=== PATIENT | male | born 1955 | race Caucasian/White ===

== ENCOUNTER 2024-11-10 13:06 | Inpatient (IN) | payer OTHER ==
[~2024-11-10] VITALS: Ht 177.8 cm; Wt 96.5 kg
[2024-11-10 13:56] LABS: Hematocrit 49.4 % (41.0-53.0); Hemoglobin 17.3 g/dL (13.5-17.5); Mean Corpuscular Hemoglobin 31.0 pg (28.0-32.0); Mean Corpuscular Volume 88.6 fL (80.0-100.0); Nucleated Red Blood Cells % 0.1 %
[2024-11-10 14:07] LABS: Potassium 4.1 mmol/L (3.5-5.1); Sodium 142 mmol/L (136-145)
[2024-11-10 14:08] LABS: Anion Gap 10 (5-15); Calcium 10.1 mg/dL (8.7-10.4); Carbon Dioxide 24 mmol/L (20-31)
[2024-11-10 14:09] LABS: Chloride 108 mmol/L (98-107)
--- NOTE | 2024-11-10 14:11 | ED.PDOC ---
HPI (NEURO) HPI Comments 68 y/o M, with PMHx of HTN presents to the ED for CC of left-sided weakness. Patient states, that he has been experiencing left sided weakness since, February 2024. Patient reports, being sent by PCP () to have an MRI. Patient denies denies trauma, injury, or fall. Chief Complaint: Left Sided Weakness Time Seen by MD: 13:45 Reviewed Notes: Nurses Notes, Medications, Allergies Information Source: Patient, Spouse Mode of Arrival: Ambulatory Severity: Moderate Headache Severity: None Timing: Months Duration: Since onset Prehospital treatment: None Weakness Location: (L) Arm Onset: At rest Circumstances: Spontaneous Symptoms: None History of: None Modifying factors: Nothing Associated Signs and Symptoms: Weakness Past Medical History PAST MEDICAL HISTORY: HTN Surgical History: Denies all surgeries Family History Family History: Unknown Social History Smoker: Non-Smoker Alcohol: Denies ETOH Use Drugs: Denies Drug Use Lives In: Home Constitutional: denies: chills, diaphoresis, fatigue, fever, malaise, sweats, weakness, others EENTM: denies: blurred vision, double vision, ear bleeding, ear discharge, ear drainage, ear pain, ear ringing, eye pain, eye redness, hearing loss, mouth pain, mouth swelling, nasal discharge, nose bleeding, nose congestion, nose pain, photophobia, tearing, throat pain, throat swelling, voice changes, others Respiratory: denies: cough, hemoptysis, orthopnea, SOB at rest, shortness of breath, SOB with excertion, stridor, wheezing, others Cardiovascular: denies: chest pain, dizzy spells, diaphoresis, Dyspnea on exertion, edema, irregular heart beat, left arm pain, lightheadedness, palpitations, PND, syncope, others Gastrointestinal: denies: abdomen distended, abdominal pain, blood streaked bowels, constipated, diarrhea, dysphagia, difficulty swallowing, hematemesis, melena, nausea, poor appetite, poor fluid intake, rectal bleeding, rectal pain, vomiting, others Genitourinary: denies: burning, dysuria, flank pain, frequency, hematuria, incontinence, penile discharge, penile sore, pain, testicle pain, testicle swelling, urgency, others Neurological: reports: left sided weakness; denies: dizziness, fainting, headache, left sided numbness, numbness, paresthesia, pre-existing deficit, right sided numbness, right sided weakness, seizure, speech problems, tingling, tremors, weakness, others Musculoskeletal: denies: back pain, gout, joint pain, joint swelling, muscle pain, muscle stiffness, neck pain, others Integumetry: denies: bruises, change in color, change in hair/nails, dryness, laceration, lesions, lumps, rash, wounds, others Allergic/Immunocompromised: denies: Difficulty Healing, Frequent Infections, Hives, Itching, others Hematologic/Lymphatic: denies: anemia, blood clots, easy bleeding, easy bruising, swollen glands, others Endocrine: denies: excessive hunger, excessive sweating, excessive thirst, excessive urination, flushing, intolerance to cold, intolerance to heat, un explained weight gain, unexplained weight loss, others Psychiatric: denies: anxiety, bipolar disorder, depression, hopeless, panic disorder, schizophrenia, sleepless, suicidal, others All Other Systems: Reviewed and Negative Physical Exam General Appearance: Moderate Distress HEENT: Normal ENT Inspection, Pharynx Normal, TMs Normal Neck: Full Range of Motion, Non-Tender, Normal, Normal Inspection Respiratory: Chest Non-Tender, Lungs Clear, No Accessory Muscle Use, No Respiratory Distress, Normal Breath Sounds Cardiovascular: No Edema, No JVD, No Murmur, No Gallop, Normal Peripheral Pulses, Regular Rate/Rhythm Breast Exam: Deferred Gastrointestinal: No Organomegaly, Non Tender, No Pulsatile Mass, Normal Bowel Sounds, Soft Genitalia: Deferred Pelvic: Deferred Rectal: Deferred Extremities: No calf tenderness, No pedal edema, Other (Left upper extremity flaccid) Musculoskeletal : Apperance: Normal Neurologic: Alert, Motor Weakness (Left upper extremity) Cerebellar Function: NOT DONE Reflexes: NOT DONE Skin: Dry, Normal Color, Warm Peripheral Pulses: 3+ Radial (R), 3+ Radial (L) Lymphatic: No Adenopathy EKG EKG : Pulse Rate (adult): 64 [place]: Normal Cardiac Rhythm: NSR Block: None Hypertrophy: None ST: Normal Was a procedure done? Was a procedure done?: No Differential Diagnosis (SZ) Seizure: Psychogenic Seizure, Closed Head Injury, CVA/TIA General Weakness: CVA, Myasthenia gravis, TIA Headache: N/A X-Ray, Labs, Meds, VS Vital Signs Date Time Temp Pulse Resp B/P (MAP) Pulse Ox O2 Delivery O2 Flow Rate FiO2 11/10/24 16:36 65 159/93 11/10/24 16:30 65 14 159/93 (115) 94 11/10/24 15:59 70 161/93 11/10/24 15:00 71 14 174/105 (128) 93 11/10/24 14:11 64 11/10/24 14:00 98.1 64 10 161/98 (119) 95 98.1 11/10/24 13:36 64 11/10/24 13:35 Room Air* 0 21 11/10/24 13:32 98.1 71 16 166/105 (125) 94 98.1 Lab Test 11/10/24 15:31 11/10/24 13:45 11/10/24 13:26 Range/Units Urine Color Light-yellow Yellow Urine Clarity Clear Clear Urine pH 6.0 5.0-9.0 Urine Specific [place] 1.020 1.001-1.035 Urine Protein Negative Negative Urine Ketones Negative Negative Urine Blood Trace H Negative /uL Urine Nitrite Negative Negative Urine Bilirubin Negative Negative Urine Urobilinogen Normal Negative mg/dL Urine Leukocyte Esterase Negative Negative /uL Urine RBC 3 0 - 3 /hpf Urine Microscopic WBC 1 0-3 /HPF Urine Squamous Epithelial Cells None seen <5 /hpf Urine Bacteria None seen None Seen /hpf Urine Mucus Few None Seen Urine Glucose Normal Normal mg/dL White Blood Count 7.9 4.4-10.8 10^3/uL Red Blood Count 5.57 4.5-5.90 10^6/uL Hemoglobin 17.3 13.5-17.5 g/dL Hematocrit 49.4 41.0-53.0 % Mean Corpuscular Volume 88.6 80.0-100.0 fL Mean Corpuscular Hemoglobin 31.0 28.0-32.0 pg Mean Corpuscular Hemoglobin Concent 35.0 32.0-36.0 g/dL Red Cell Distribution Width 13.1 11.8-14.3 % Platelet Count 144 140-450 10^3/uL Mean Platelet Volume 8.1 6.9-10.8 fL Neutrophils (%) (Auto) 65.9 37.0-80.0 % Lymphocytes (%) (Auto) 22.5 10.0-50.0 % Monocytes (%) (Auto) 7.9 0.0-12.0 % Eosinophils (%) (Auto) 2.2 0.0-7.0 % Basophils (%) (Auto) 1.5 0.0-2.0 % Neutrophils # (Auto) 5.2 1.6-8.6 10 ^3/uL Lymphocytes # (Auto) 1.8 0.4-5.4 10 ^3/uL Monocytes # (Auto) 0.6 0-1.3 10 ^3/uL Eosinophils # (Auto) 0.2 0-0.8 10 ^3/uL Basophils # (Auto) 0.1 0-0.2 10 ^3/uL Nucleated Red Blood Cells 0.1 % Sodium Level 142 136-145 mmol/L Potassium Level 4.1 3.5-5.1 mmol/L Chloride Level 108 H 98-107 mmol/L Carbon Dioxide Level 24 20-31 mmol/L Anion Gap 10 5-15 Blood Urea Nitrogen 15 9-23 mg/dL Creatinine 1.09 0.700-1.30 mg/dL Glomerular Filtration Rate Calc 74 >90 mL/min BUN/Creatinine Ratio 13.8 10.0-20.0 Serum Glucose 85 74-106 mg/dL Calcium Level 10.1 8.7-10.4 mg/dL Troponin I High Sensitivity 8 </=54 ng/L POC Glucose 90 70-106 mg/dl Current Medications Medications (Trade) Dose Ordered Sig/Cristian Route Start Time Stop Time Status Last Admin Labetalol HCl (Labetalol HCl) 10 mg ONCE ONCE IV 11/10/24 15:30 11/10/24 15:31 DC 11/10/24 15:59 Patient alert. Vitals stable. Has weakness of left upper extremity. Answering all questions. WBC within normal limits. Hemoglobin within normal limits. Kidney function within normal limits. Possibly old injury that is causing his symptom at the present moment. Rule out brachial plexus injury. Possibly will need MRI of the neck. CT myelogram. Blood pressure elevated. Was given labetalol. Explained to the family. Continue monitoring. Patient will need echocardiogram. Ongoing pain. Blood pressure continues to be elevated. [place] approved inpatient admission [id number]. Time of 1ST Reevaluation: 14:15 Reevaluation 1ST: Unchanged Patient Education/Counseling: Diagnosis, Treatment Family Education/Counseling: No Family Present Departure 1 Departure Time of Disposition: 14:31 Impression: Primary Impression: Hypertensive emergency Additional Impression: Muscle atrophy of upper extremity Disposition: ADMITTED INPATIENT Admit to: Med Surg Condition: Guarded Critical Care Note Critical Care Time?: No Stability Stability form required: No Heart Score Heart Score: Heart Score Response (Comments) Value History N/A 0 EKG N/A 0 Age N/A 0 Risk Factors N/A 0 Troponin N/A 0 Total 0 I personally scribed for KAVITHA CHA MD ([email or web address]) on 11/10/24 at 14:11. Electronically submitted by Nadya Xiong ([email or web address]). I personally scribed for KAVITHA CHA MD ([email or web address]) on 11/10/24 at 14:13. Electronically submitted by Nadya Xiong ([employer]). I personally scribed for KAVITHA CHA MD ([email or web address]) on 11/10/24 at 14:38. Electronically submitted by Nadya Xiong ([email or web address]). KAVITHA CHA MD Nov 10, 2024 14:11
[2024-11-10 14:13] LABS: BUN/Creatinine Ratio 13.8 (10.0-20.0); Blood Urea Nitrogen 15 mg/dL (9-23); Glucose 85 mg/dL (74-106)
[2024-11-10 15:42] LABS: Urine Protein, UAD Negative (Negative)
[2024-11-10] MEDS: LABETALOL HCL 20 MG/4 ML VL IV ONE ×2 (15:59→18:24)
[2024-11-10] MEDS ORDERED: HYDROcodone-ACET 5/325MG TAB PO PRN (18:15)
[2024-11-10 19:40] VITALS: PULSE 62; RESP 14; O2SAT 93
[2024-11-10] MEDS ORDERED: NITROGLYCERIN 0.4 MG SL TAB SL PRN (20:45)
[2024-11-10] MEDS ORDERED: MORPHINE SULFATE INJ 2 MG/ml SYRG IV PRN (20:45)
--- NOTE | 2024-11-10 21:04 | DVHHP2 ---
History of Present Illness Reason for Visit: Hypertensive emergency History of Present Illness The patient is a 68-year-old male with past medical history of hypertension who presented to [facility] ED with complaint of left-sided weakness. Patient reports he has been experiencing left-sided weakness since February,, [place] by his PCP Dr. Matthews to have an MRI. Patient was seen and evaluated in the ED, laboratory data shows WBC 7.9, platelets 144, sodium 142, potassium 4.1, BUN 15, creatinine 1.09, GFR 74, glucose 85, troponin 8, calcium 10.1, blood pressure 175/105 trending down to 163/95, heart rate 65, temperature 98.1 F, O2 saturation 95% on room air. Patient was given labetalol 10 mg IV, please see medication orders section in the computer. On my assessment, patient denied chest pain, no headache, no dizziness no diaphoresis, no shortness of breath, no nausea, no vomiting, no fever, no chills. Patient was admitted for further evaluation and medical management. Past Medical History HTN Past Surgical History Denies all surgeries Family History Reviewed, noncontributory to the management of this case. Past Social History The patient lives at home, denies smoking, alcohol or illicit drugs abuse. Review of Systems Constitutional: No: Fever, Chills, Sweats, Weakness, Malaise, Other Eyes: No: Pain, Vision change, Conjunctivae inflammation, Eyelid inflammation, Other, Redness ENT: No: Ear pain, Ear discharge, Nose pain, Nose discharge, Nose congestion, Mouth pain, Mouth swelling, Throat pain, Throat swelling, Other Respiratory: No: Cough, Dry, Shortness of breath, SOB with excertion, Wheezing, Hemoptysis, Pleuritic Pain, Sputum, Wheezing, Other Cardiovascular: No: Chest Pain, Palpitations, Orthopnea, Paroxysmal Noc. Dyspnea, Edema, Lt Headedness, Other Gastrointestinal: No: Nausea, Vomiting, Abdominal Pain, Diarrhea, Constipation, Melena, Hematochezia, Other Genitourinary: No Dysuria, No Frequency, No Incontinence, No Hematuria, No Retention, No Other Musculoskeletal: other (Muscle atrophy of upper extremity); No: neck pain, shoulder pain, arm pain, back pain, hand pain, leg pain, foot pain Skin: No: Rash, Lesions, Jaundice, Bruising, Other Neurological: Weakness (Left-sided); No: Numbness, Incoordination, Change in speech, Confusion, Seizures, Other Allergies: Coded Allergies: NO KNOWN ALLERGIES (Unverified , 11/10/24) Medications Current Medications Medications Dose Ordered Sig/Cristian Route Start Time Stop Time Status Last Admin Dose Admin Losartan Potassium 25 mg DAILY PO 11/11/24 10:00 Hydralazine HCl 10 mg Q6HP PRN IV 11/10/24 18:15 Amlodipine Besylate 5 mg DAILY PO 11/11/24 10:00 Sodium Chloride 10 ml Q8HR IV 11/10/24 22:00 Acetaminophen/ Hydrocodone Bitart 1 tab Q4HP PRN PO 11/10/24 18:15 Acetaminophen 650 mg Q6HP PRN PO 11/10/24 18:15 Exam Vital Signs Vital Signs Date Time Temp Pulse Resp B/P (MAP) Pulse Ox O2 Delivery O2 Flow Rate FiO2 11/10/24 20:36 61 11/10/24 19:06 14 164/98 (120) 96 11/10/24 14:00 98.1 98.1 11/10/24 13:35 Room Air* 0 21 General Appearance: Alert, Oriented X3, Cooperative, No acute distress HEENT: Atraumatic, PERRLA, EOMI, Mucous membr. moist/pink Respiratory: Clear to auscultation, Normal air movement Cardiovascular: Regular rate, Normal S1, Normal S2, No murmurs Abdominal: Normal bowel sounds, Soft, No tenderness, No hepatospenomegaly, No masses Extremities: No clubbing, No cyanosis, No edema, Normal pulses, No tenderness/swelling Skin: No rashes, No breakdown, No significant lesion Neuro: Normal speech, Normal tone, Sensation intact, Cranial nerves 3-12 NL, Reflexes 2+, Other (Left-sided weakness) Psych/Mental Status: Mental status NL, Mood NL Labs/Xrays Labs Test 11/10/24 15:31 11/10/24 13:45 11/10/24 13:26 Range/Units Urine Color Light-yellow Yellow Urine Clarity Clear Clear Urine pH 6.0 5.0-9.0 Urine Specific [place] 1.020 1.001-1.035 Urine Protein Negative Negative Urine Ketones Negative Negative Urine Blood Trace H Negative /uL Urine Nitrite Negative Negative Urine Bilirubin Negative Negative Urine Urobilinogen Normal Negative mg/dL Urine Leukocyte Esterase Negative Negative /uL Urine RBC 3 0 - 3 /hpf Urine Microscopic WBC 1 0-3 /HPF Urine Squamous Epithelial Cells None seen <5 /hpf Urine Bacteria None seen None Seen /hpf Urine Mucus Few None Seen Urine Glucose Normal Normal mg/dL White Blood Count 7.9 4.4-10.8 10^3/uL Red Blood Count 5.57 4.5-5.90 10^6/uL Hemoglobin 17.3 13.5-17.5 g/dL Hematocrit 49.4 41.0-53.0 % Mean Corpuscular Volume 88.6 80.0-100.0 fL Mean Corpuscular Hemoglobin 31.0 28.0-32.0 pg Mean Corpuscular Hemoglobin Concent 35.0 32.0-36.0 g/dL Red Cell Distribution Width 13.1 11.8-14.3 % Platelet Count 144 140-450 10^3/uL Mean Platelet Volume 8.1 6.9-10.8 fL Neutrophils (%) (Auto) 65.9 37.0-80.0 % Lymphocytes (%) (Auto) 22.5 10.0-50.0 % Monocytes (%) (Auto) 7.9 0.0-12.0 % Eosinophils (%) (Auto) 2.2 0.0-7.0 % Basophils (%) (Auto) 1.5 0.0-2.0 % Neutrophils # (Auto) 5.2 1.6-8.6 10 ^3/uL Lymphocytes # (Auto) 1.8 0.4-5.4 10 ^3/uL Monocytes # (Auto) 0.6 0-1.3 10 ^3/uL Eosinophils # (Auto) 0.2 0-0.8 10 ^3/uL Basophils # (Auto) 0.1 0-0.2 10 ^3/uL Nucleated Red Blood Cells 0.1 % Sodium Level 142 136-145 mmol/L Potassium Level 4.1 3.5-5.1 mmol/L Chloride Level 108 H 98-107 mmol/L Carbon Dioxide Level 24 20-31 mmol/L Anion Gap 10 5-15 Blood Urea Nitrogen 15 9-23 mg/dL Creatinine 1.09 0.700-1.30 mg/dL Glomerular Filtration Rate Calc 74 >90 mL/min BUN/Creatinine Ratio 13.8 10.0-20.0 Serum Glucose 85 74-106 mg/dL Calcium Level 10.1 8.7-10.4 mg/dL Troponin I High Sensitivity 8 </=54 ng/L POC Glucose 90 70-106 mg/dl Assessment/Plan Assessment/Plan Hypertensive emergency Left-sided weakness Muscle atrophy of upper extremity Plan 1. Admit to telemetry unit 2. Breathing treatment 3. Pain control management 4. Management of fluids and electrolytes 5. Consultation for hospitalist 6. Diagnostic tests chest x-ray 7. DVT prophylaxis-on SCDs 8. Repeat labs CBC, CMP in a.m. 9. Continue with current medical management 10. Treatment plan discussed with patient and RN. Patient verbalized unde rstanding. Plan discussed with: Patient, Other (RN) My Orders Orders - RONNIE RAMIREZ DNP Procedure Category Date Status Time Losartan Tablet PHA 11/11/24 In Process (Cozaar Tablet) 10:00 Hydralazine Injection PHA 11/10/24 In Process (Apresoline Inject 18:15 Amlodipine Tablet PHA 11/11/24 In Process (Norvasc Tablet) 10:00 Allergies [facility] 11/10/24 In Process 18:05 Code Status CODE 11/10/24 Transmitted 18:05 Sodium Chloride Lock PHA 11/10/24 In Process (Saline Lock Ns) 22:00 Hydrocodone-Acet PHA 11/10/24 In Process 5/325mg Tab ([place] 18:15 Cardiac DIET 11/10/24 Transmitted Diet-2gna,Lofat,Lochol Dinner Condition: Serious CHRISTINA 11/10/24 In Process 18:05 Acetaminophen Tablet PHA 11/10/24 In Process (Tylenol Tablet) 18:15 Admit ADMIT 11/10/24 Verified 20:[address] [facility] 11/10/24 Verified Sublingual (Ntrostat 20:[address] [facility] 11/10/24 Verified Injection 20:45 Stat Ekg For Chest [facility] 11/10/24 Verified Pain 20:41 Notify Of Changes [facility] 11/10/24 Verified From Base 20:41 Office Auditor For [facility] 11/10/24 Verified 24 Hours 20:41 Emergency Dysrhythmia [facility] 11/10/24 Verified Protocol 20:41 Rhythm Strips Once [facility] 11/10/24 Verified Every Shift 20:41 Oxygen By Nasal RT 11/10/24 Verified Cannula 20:41 Problem List: (1) Hypertensive emergency (2) Left-sided weakness (3) Muscle atrophy of upper extremity Date of Service: Nov 10, 2024 Billing Provider: RNONIE RAMIREZ DNP Common Visit Codes: [id number] INP/OBS CARE (HIGH) RONNIE RAMIREZ DNP Nov 10, 2024 21:04
[2024-11-10] MEDS: SODIUM CHLOR 0.9% PF (SALINE LOCK) 10ML VIAL/SYR IV SCH (22:00)
[2024-11-10 22:32] VITALS: BP 156/84; PULSE 62; RESP 17; TEMP 97.4; O2SAT 94
[2024-11-10 22:54] VITALS: O2SAT 99
[2024-11-10] MEDS ORDERED: LOS25T PO (22:55)
[2024-11-10] MEDS ORDERED: IBUP-1455 PO (22:55)
[2024-11-11] VITALS (10 sets, daily range): BP systolic 125–163; BP diastolic 75–105; PULSE 59–79; RESP 16–20; TEMP 97.8–98.4; O2SAT 92–96
--- NOTE | 2024-11-11 09:10 | DVHINCON2 ---
Date of service: Nov 11, [address] Matthews Reason for Consultation ALS History of Present Illness Mr. Howell is a 68 years old left-handed gentleman with a history of hypertension, he came to the [facility] on 11/10/2024 with a chief complaint of left arm weakness, at this time, he is alert and fully oriented, he provided the following history Around 03/2024, he noticed slight left arm weakness, and problem has been progressive, and he has not able to elevated the left arm since 06/2024 Since mid 08/2024, he has noticed neck drooping, he reports intermittent mild neck pain Since mid 08/2024, he has been dragging the left leg but he attributed to mild pain in the left hip He has noticed muscle twitching in the left arm than leg, but denies associated dysphagia, paresthesia, difficulty controlling bowel/bladder He has seen a [facility] neurologist, he went through CT head, MRI shoulder/neck, but he does not remember having NCV/EMG, and he was said to have ALS Urinalysis, 11/10/2024: No UTI CBC, 11/10/2024: Unremarkable BMP 11/10/2024: Unremarkable Past Medical History Hypertension Past Surgical History None Family History: FH: brain cancer G8 MOTHER Family History Ry's disease, brain cancer, no areas Social History He used to smoke marijuana, but has no history of tobacco smoke, drug or alcohol abuse Allergies: Coded Allergies: NO KNOWN ALLERGIES (Unverified , 11/10/24) Home Meds Reported Medications Ibuprofen Micronized (Ibuprofen) 800 Mg Tab, TAB PO 11/10/24 Losartan Potassium (Losartan Potassium) 25 Mg Tab, 1 TAB PO DAILY 11/10/24 Current Medications Current Medications Medications (Trade) Dose Ordered Sig/Cristian Route PRN Reason Start Time Stop Time Status Last Admin Losartan Potassium (Cozaar Tablet) 25 mg DAILY PO 11/11/24 10:00 Hydralazine HCl (Apresoline Injection) 10 mg Q6HP PRN IV SBP>150 11/10/24 18:15 Amlodipine Besylate (Norvasc Tablet) 5 mg DAILY PO 11/11/24 10:00 Sodium Chloride (Saline Lock Ns) 10 ml Q8HR IV 11/10/24 22:00 11/11/24 06:15 Acetaminophen/ Hydrocodone Bitart ([place] 5/325MG Tab) 1 tab Q4HP PRN PO MODERATE PAIN (4-6 PAIN SCALE) 11/10/24 18:15 Acetaminophen (Tylenol Tablet) 650 mg Q6HP PRN PO PAIN SCALE 1-3 OR TEMP>100.4 11/10/24 18:15 Nitroglycerin (Ntrostat Sublingual) 0.4 mg Q5MINP PRN SL FOR CHEST PAIN 11/10/24 20:45 Morphine Sulfate 2 mg Q30M PRN IV FOR CHEST PAIN 11/10/24 20:45 Enoxaparin Sodium (Lovenox) 40 mg DAILY SC 11/11/24 10:00 Review of Systems As above, the other systems are negative Vital Signs Vital Signs Date Time Temp Pulse Resp B/P (MAP) Pulse Ox O2 Delivery O2 Flow Rate FiO2 11/11/24 08:13 18 92 Room Air* 0 21 11/11/24 05:00 97.8 60 142/75 (97) 97.8 Physical Exam GENERAL EXAM: General: the patient is well developed and nourished. No acute distress. HEENT: Normocephalic, neck is supple, no carotid bruits. No mass. RESPIRATORY: Normal respiratory effort with symmetrical lung expansion. Lungs clear to auscultation. CARDIOVASCULAR: Regular rate and rhythm with no murmurs. S1, S2. ABDOMEN: Soft, nontender, normal bowel sound NEUROLOGICAL: MENTAL STATUS: Awake and alert. Oriented to person, place, time and general circumstances. Able to give personal history. SPEECH, LANGUAGE, HIGHER CORTICAL FUNCTION: no aphasia or dysathria. CRANIAL NERVES: #2: Intact visual olmos to confrontation. The optic discs were sharp. #3,4,6: Pupils are equal, round and reactive. EOMs full and conjugate. #5: Facial sensation intact in all three divisions bilaterally. Mandibular strength intact. #7: Facial muscles symmetrical and strength intact. #8: Hearing grossly normal to voice. #9,10: Uvula and soft palate rise in the midline. Swallow and voice are normal. #11: Trapezius and sternomastoid strength intact bilaterally. #12: Tongue midline. No fasciculations or atrophy. SENSATION: Sensation to touch and pinprick is normal. MOTOR: Tone is normal except for diminished in the left upper extremity. Mild atrophy in the left upper extremity. No fasciculations. No abnormal movements or posturing. Muscle strength of the major groups in the er extremities is 5/5 except for 3/5 in the left shoulder, elbow, and 4/5 in the left gripping REFLEXES: Deep tendon reflexes normal and symmetrical. No pathological reflexes. CEREBELLAR/COORDINATION: No ataxia in the right arm GAIT/STATION: deferred. Labs/Diagnostic Data Labs Test 11/10/24 15:31 11/10/24 13:45 11/10/24 13:26 Range/Units Urine Color Light-yellow Yellow Urine Clarity Clear Clear Urine pH 6.0 5.0-9.0 Urine Specific [place] 1.020 1.001-1.035 Urine Protein Negative Negative Urine Ketones Negative Negative Urine Blood Trace H Negative /uL Urine Nitrite Negative Negative Urine Bilirubin Negative Negative Urine Urobilinogen Normal Negative mg/dL Urine Leukocyte Esterase Negative Negative /uL Urine RBC 3 0 - 3 /hpf Urine Microscopic WBC 1 0-3 /HPF Urine Squamous Epithelial Cells None seen <5 /hpf Urine Bacteria None seen None Seen /hpf Urine Mucus Few None Seen Urine Glucose Normal Normal mg/dL White Blood Count 7.9 4.4-10.8 10^3/uL Red Blood Count 5.57 4.5-5.90 10^6/uL Hemoglobin 17.3 13.5-17.5 g/dL Hematocrit 49.4 41.0-53.0 % Mean Corpuscular Volume 88.6 80.0-100.0 fL Mean Corpuscular Hemoglobin 31.0 28.0-32.0 pg Mean Corpuscular Hemoglobin Concent 35.0 32.0-36.0 g/dL Red Cell Distribution Width 13.1 11.8-14.3 % Platelet Count 144 140-450 10^3/uL Mean Platelet Volume 8.1 6.9-10.8 fL Neutrophils (%) (Auto) 65.9 37.0-80.0 % Lymphocytes (%) (Auto) 22.5 10.0-50.0 % Monocytes (%) (Auto) 7.9 0.0-12.0 % Eosinophils (%) (Auto) 2.2 0.0-7.0 % Basophils (%) (Auto) 1.5 0.0-2.0 % Neutrophils # (Auto) 5.2 1.6-8.6 10 ^3/uL Lymphocytes # (Auto) 1.8 0.4-5.4 10 ^3/uL Monocytes # (Auto) 0.6 0-1.3 10 ^3/uL Eosinophils # (Auto) 0.2 0-0.8 10 ^3/uL Basophils # (Auto) 0.1 0-0.2 10 ^3/uL Nucleated Red Blood Cells 0.1 % Sodium Level 142 136-145 mmol/L Potassium Level 4.1 3.5-5.1 mmol/L Chloride Level 108 H 98-107 mmol/L Carbon Dioxide Level 24 20-31 mmol/L Anion Gap 10 5-15 Blood Urea Nitrogen 15 9-23 mg/dL Creatinine 1.09 0.700-1.30 mg/dL Glomerular Filtration Rate Calc 74 >90 mL/min BUN/Creatinine Ratio 13.8 10.0-20.0 Serum Glucose 85 74-106 mg/dL Calcium Level 10.1 8.7-10.4 mg/dL Troponin I High Sensitivity 8 </=54 ng/L POC Glucose 90 70-106 mg/dl Assessment Progressive left upper extremity weakness, neck weakness without sensory symptoms, possibly he has amyotrophic lateral sclerosis/ALS Rule out C-spine radiculopathy/plexopathy Plan/Recommendation Monitoring Supportive treatment Telemetry MRI C-spine CPK Consult Dr. Eva Jeffers or neuromuscular specialist More recommendation per clinical course Prognosis: Poor This medical document was created using an electronic medical record system with [employer] dictation system. Although this document has been carefully reviewed, there may still be some phonetic and typographical errors. These are as are purely typographical due to imperfections of the software programs, and do not reflect any compromise in the patient's medical care. Plan discussed with: Patient, Other KASSANDRA ALVA MD Nov 11, 2024 09:10
--- NOTE | 2024-11-11 09:18 | DVH ---
CHEST RADIOGRAPH Indication: SOB Technique: Frontal and lateral view of the chest was obtained Comparison: None FINDINGS: Lines and Tubes: None Lungs: Clear Pleura: No effusion. No pneumothorax. Cardiomediastinal contours: Unremarkable Bones: Unremarkable IMPRESSION: No evidence of acute disease.
[2024-11-11] MEDS: LOSARTAN POTASSIUM 25 MG TAB PO SCH (09:33)
[2024-11-11] MEDS: ENOXAPARIN SOD 40 MG/0.4 ML SYRINGE SC SCH (09:34)
[2024-11-11] MEDS: ACETAMINOPHEN 325 MG TAB PO PRN (09:44)
[2024-11-11 09:59] LABS: Creatine Kinase IFCC 834.0 U/L (46-171)
--- NOTE | 2024-11-11 10:05 | DVHINCON2 ---
Consultation - Spinal Surgery Date Seen: Nov 11, 2024 Referring Physician Referring Physician Attending Doctor: Nam Vanessa Dnp Reason for Consultation Reason for Visit: Hypertensive emergency History of Present Illness History of Present Illness History of Present Illness The patient is a 68-year-old male with past medical history of hypertension who presented to [facility] ED with complaint of left-sided weakness. Patient reports he has been experiencing left-sided weakness since February,, [place] by his PCP Dr. Matthews to have an MRI. Patient was seen and evaluated in the ED, laboratory data shows WBC 7.9, platelets 144, sodium 142, potassium 4.1, BUN 15, creatinine 1.09, GFR 74, glucose 85, troponin 8, calcium 10.1, blood pressure 175/105 trending down to 163/95, heart rate 65, temperature 98.1 F, O2 saturation 95% on room air. Patient was given labetalol 10 mg IV, please see medication orders section in the computer. On my assessment, patient denied chest pain, no headache, no dizziness no diaphoresis, no shortness of breath, no nausea, no vomiting, no fever, no chills. Patient was admitted for further evaluation and medical management. Past Medical/Surgical History Past Medical/Surgical History Past Medical History HTN Past Surgical History Denies all surgeries Family and Social History Family and Social History Family History Reviewed, noncontributory to the management of this case. Past Social History The patient lives at home, denies smoking, alcohol or illicit drugs abuse. Allergies and medications Allergies: Coded Allergies: NO KNOWN ALLERGIES (Unverified , 11/10/24) Home Meds Reported Medications Ibuprofen Micronized (Ibuprofen) 800 Mg Tab, TAB PO 11/10/24 Losartan Potassium (Losartan Potassium) 25 Mg Tab, 1 TAB PO DAILY 11/10/24 Review of systems Review of Systems: HEENT:Abnormal (Patient is unable to hold head in neutral position), CVS:Normal, RESPIRATORY:Normal, GI:Normal, :Normal, MSK:Abnormal (left arm weakness since March), NEURO:Abnormal (Laft arm weakness initally started in shoulder/biceps and as of 2 months ago his hand has become weak) Examination Vital signs Imaging PROCEDURE: MRI cervical spine without contrast. INDICATION: Spondolosys COMPARISON: None TECHNIQUE: MRI of the cervical spine without intravenous contrast utilizing multiplanar, multisequence technique. FINDINGS: The alignment of the cervical spine vertebral bodies is preserved. Reversal of the cervical lordosis. The vertebral body heights are maintained. The intervertebral disc spaces are maintained in height and signal characteristics. The bone marrow signal is homogenous and unremarkable. The cervical spinal cord is normal in signal characteristics and caliber. Posterior fossa structures are unremarkable. No cerebellar tonsillar herniation. Paraspinal muscles are unremarkable. At the C2-C3 level, there is no evidence of central spinal canal or neuroforaminal stenosis. At the C3-C4 level, there is posterior disc osteophyte complex. There is mild canal stenosis. There is severe right and mild left neural foraminal stenosis. At the C4-C5 level, there is right posterolateral disc protrusion. There is mild canal stenosis. Severe right and moderate left neural foraminal stenosis. At the C5-C6 level, there is posterior disc osteophyte complex. Mild canal stenosis. There is moderate right and severe left neural foraminal stenosis. At the C6-C7 level, there is posterior disc osteophyte complex. There is moderate canal stenosis. There is moderate to severe bilateral neural foraminal stenosis. At the C7-T1 level, there is no evidence of central spinal canal or neuroforaminal stenosis. Other: None. IMPRESSION: 1. Multilevel cervical spondylosis most pronounced at C4-C5 where there is a right posterolateral disc protrusion. There is severe right neural foraminal stenosis at C4-C5 severe right neural foraminal stenosis also noted at C3-C4 and moderate to severe bilateral neural foraminal stenosis at C6-C7. Vital Signs Date Time Temp Pulse Resp B/P (MAP) Pulse Ox O2 Delivery O2 Flow Rate FiO2 11/11/24 09:33 155/87 11/11/24 09:00 97.8 63 16 92 97.8 11/11/24 08:13 Room Air* 0 21 Medications Current Medications Medications (Trade) Dose Ordered Sig/Cristian Route PRN Reason Start Time Stop Time Status Last Admin Losartan Potassium (Cozaar Tablet) 25 mg DAILY PO 11/11/24 10:00 11/11/24 09:33 Hydralazine HCl (Apresoline Injection) 10 mg Q6HP PRN IV SBP>150 11/10/24 18:15 Amlodipine Besylate (Norvasc Tablet) 5 mg DAILY PO 11/11/24 10:00 11/11/24 09:32 Sodium Chloride (Saline Lock Ns) 10 ml Q8HR IV 11/10/24 22:00 11/11/24 06:15 Acetaminophen/ Hydrocodone Bitart ([place]ston 5/325MG Tab) 1 tab Q4HP PRN PO MODERATE PAIN (4-6 PAIN SCALE) 11/10/24 18:15 Acetaminophen (Tylenol Tablet) 650 mg Q6HP PRN PO PAIN SCALE 1-3 OR TEMP>100.4 11/10/24 18:15 11/11/24 09:44 Nitroglycerin (Ntrostat Sublingual) 0.4 mg Q5MINP PRN SL FOR CHEST PAIN 11/10/24 20:45 Morphine Sulfate 2 mg Q30M PRN IV FOR CHEST PAIN 11/10/24 20:45 Enoxaparin Sodium (Lovenox) 40 mg DAILY SC 11/11/24 10:00 11/11/24 09:34 Laboratory Labs Test 11/11/24 09:25 11/10/24 15:31 11/10/24 13:45 11/10/24 13:26 Range/Units Hemoglobin A1c 5.4 <5.7 % A1C Urine Color Light-yellow Yellow Urine Clarity Clear Clear Urine pH 6.0 5.0-9.0 Urine Specific [place] 1.020 1.001-1.035 Urine Protein Negative Negative Urine Ketones Negative Negative Urine Blood Trace H Negative /uL Urine Nitrite Negative Negative Urine Bilirubin Negative Negative Urine Urobilinogen Normal Negative mg/dL Urine Leukocyte Esterase Negative Negative /uL Urine RBC 3 0 - 3 /hpf Urine Microscopic WBC 1 0-3 /HPF Urine Squamous Epithelial Cells None seen <5 /hpf Urine Bacteria None seen None Seen /hpf Urine Mucus Few None Seen Urine Glucose Normal Normal mg/dL White Blood Count 7.9 4.4-10.8 10^3/uL Red Blood Count 5.57 4.5-5.90 10^6/uL Hemoglobin 17.3 13.5-17.5 g/dL Hematocrit 49.4 41.0-53.0 % Mean Corpuscular Volume 88.6 80.0-100.0 fL Mean Corpuscular Hemoglobin 31.0 28.0-32.0 pg Mean Corpuscular Hemoglobin Concent 35.0 32.0-36.0 g/dL Red Cell Distribution Width 13.1 11.8-14.3 % Platelet Count 144 140-450 10^3/uL Mean Platelet Volume 8.1 6.9-10.8 fL Neutrophils (%) (Auto) 65.9 37.0-80.0 % Lymphocytes (%) (Auto) 22.5 10.0-50.0 % Monocytes (%) (Auto) 7.9 0.0-12.0 % Eosinophils (%) (Auto) 2.2 0.0-7.0 % Basophils (%) (Auto) 1.5 0.0-2.0 % Neutrophils # (Auto) 5.2 1.6-8.6 10 ^3/uL Lymphocytes # (Auto) 1.8 0.4-5.4 10 ^3/uL Monocytes # (Auto) 0.6 0-1.3 10 ^3/uL Eosinophils # (Auto) 0.2 0-0.8 10 ^3/uL Basophils # (Auto) 0.1 0-0.2 10 ^3/uL Nucleated Red Blood Cells 0.1 % Sodium Level 142 136-145 mmol/L Potassium Level 4.1 3.5-5.1 mmol/L Chloride Level 108 H 98-107 mmol/L Carbon Dioxide Level 24 20-31 mmol/L Anion Gap 10 5-15 Blood Urea Nitrogen 15 9-23 mg/dL Creatinine 1.09 0.700-1.30 mg/dL Glomerular Filtration Rate Calc 74 >90 mL/min BUN/Creatinine Ratio 13.8 10.0-20.0 Serum Glucose 85 74-106 mg/dL Calcium Level 10.1 8.7-10.4 mg/dL Troponin I High Sensitivity 8 </=54 ng/L POC Glucose 90 70-106 mg/dl Examination: GENERAL:Normal, HEENT:Normal, NECK:Abnormal (unable to hold head in neutral position), LUNGS:Normal, CVS:Normal, ABDOMEN:Normal, MSK:Normal, SKIN:Normal, NEURO:Abnormal (unable to hold head in neutral position, left arm is weak 2/5, left hand is weak 2/5, patient unable to lift arm a deltoid sensation intact bilaterally to all extremities, decrease in muscle bulk to left hand and arm), :Normal Problem List/Assessment/Plan Problems: (1) Cervical stenosis of spinal canal (2) Muscle atrophy of upper extremity (3) Left-sided weakness Assessment and Plan Multilevel cervical spondylosis C4-C5 with right posterolateral disc protrusion. Severe right neural foraminal stenosis at C4-C5, severe right neural foraminal stenosis also noted at C3-C4, severe bilateral neural foraminal stenosis at C6- C7 Patient is agreeable to surgery, cervical anterior diskectomy and fusion, levels to be determined. Patient will need cardio clearance medical clearance prior to surgery Surgery schedule pending OR availability- spine team would like to plan for surgery tomorrow 11/12/2024 Continue supportive care and treatment per admitting team's discretion Physical therapy while in-house Muscle relaxers to reduce cervical muscle spasms Call with questions Adrian Hanks [facility] Orthopaedic Spine Surgery nurse practitioner For Dr Dominique Goldberg Patient was examined, chart reviewed, labs evaluated, and diagnostic studies and findings analyzed. Case was discussed with Dr. Cliff Goldberg who formulated the plan of care. This medical document was created using an electronic medical record system with [employer] dictation system. Although this document has been carefully reviewed, there might still be some phonetic and typographical errors. These areas are purely typographical due to imperfections of the software programs, and do not reflect any compromise in the patient's medical care. Plan discussed with Plan discussed with: Patient, Other FELICIA HANKS NP Nov 11, 2024 10:05
--- NOTE | 2024-11-11 10:09 | ECG ---
[facility] Test Date: 2024-11-10 Test Time: 13:36:41 Pat Name: CLAY MURRAY Department: ED Room: 0246T Gender: M Shot Man: lyudmila : [id number] Requested By: KAVITHA CHA Order Number: [id number] Reading MD: Trip Ruffin Measurements Intervals [place] Rate: 64 P: 36 KS: 165 QRS: 21 QRSD: 86 T: 21 QT: 395 QTc: 408 Interpretive Statements Sinus rhythm Electronically Signed On 11-13-2024 9:48:48 PDT by Trip Ruffin Please click the below link to view image of tracing.
--- NOTE | 2024-11-11 10:29 | DVH ---
EXAMINATION: MRI BRAIN HEAD WO CONTRAST INDICATION: ALS COMPARISON: None TECHNIQUE: Multiplanar, multisequence magnetic resonance imaging of the brain was performed without the use of i ntravenous contrast. FINDINGS: No evidence of acute infarct. No intracranial hemorrhage. No mass effect. Mild generalized cortical volume loss. There is periventricular/deep white matter T2/FLAIR hyperintensity is nonspecific, but most commonly associated with chronic microvascular disease. The ventricles and sulci are normal in size for age. Clear basal cisterns. Flow voids in the major intracranial vessels are maintained. No abnormality of the orbits. Paranasal sinuses and mastoid air cells are clear. No abnormality of the visualized osseous structures and extracranial soft tissues. IMPRESSION: 1. No acute infarct, intracranial hemorrhage, mass effect, or hydrocephalus.
--- NOTE | 2024-11-11 11:08 | DVH ---
PROCEDURE: MRI cervical spine without contrast. INDICATION: Spondolosys COMPARISON: None TECHNIQUE: MRI of the cervical spine without intravenous contrast utilizing multiplanar, multisequen ce technique. FINDINGS: The alignment of the cervical spine vertebral bodies is preserved. Reversal of the cervical lordosis. The vertebral body heights are maintained. The intervertebral disc spaces are maintained in height a nd signal characteristics. The bone marrow signal is homogenous and unremarkable. The cervical spinal cord is normal in signal characteristics and caliber. Posterior fossa structures are unremarkable. N o cerebellar tonsillar herniation. Paraspinal muscles are unremarkable. At the C2-C3 level, there is no evidence of central spinal canal or neuroforaminal stenosis. At the C3-C4 level, there is posterior disc osteophyte complex. There is mild canal stenosis. There is severe right and mild left neural foraminal stenosis. At the C4-C5 level, there is right posterolateral disc protrusion. There is mild canal stenosis. Mckayla re right and moderate left neural foraminal stenosis. At the C5-C6 level, there is posterior disc osteophyte complex. Mild canal stenosis. There is moder ate right and severe left neural foraminal stenosis. At the C6-C7 level, there is posterior disc osteophyte complex. There is moderate canal stenosis. T here is moderate to severe bilateral neural foraminal stenosis. At the C7-T1 level, there is no evidence of central spinal canal or neuroforaminal stenosis. Other: None. IMPRESSION: 1. Multilevel cervical spondylosis most pronounced at C4-C5 where there is a right posterolateral dis c protrusion. There is severe right neural foraminal stenosis at C4-CSevere right neural foraminal s tenosis also noted at C3-C4 and moderate to severe bilateral neural foraminal stenosis at C6-C7.
[2024-11-11] MEDS ORDERED: IBUPROFEN 400 MG TAB PO PRN (11:30)
--- NOTE | 2024-11-11 11:33 | DVHPN2 ---
Progress Note Date Seen: Nov 11, 2024 Medical Necessity Reason Pt with a Central, PICC or Fol: No Subjective Patient reports: No new complaints Review of Systems: HEENT:Normal, CVS:Normal, RESPIRATORY:Normal, GI:Normal, :Normal, MSK:Normal, NEURO:Normal Objective vital signs Vital Sign Date Time Temp Pulse Resp B/P (MAP) Pulse Ox O2 Delivery O2 Flow Rate FiO2 11/11/24 09:33 155/87 11/11/24 09:00 97.8 63 16 92 97.8 11/11/24 08:13 Room Air* 0 21 Total Intake and Output 11/10/24 11/10/24 11/11/24 15:00 23:00 07:00 Intake Total 350 ml Balance 350 ml medications Current Medications Medications Dose Ordered Sig/Cristian Route Start Time Stop Time Status Last Admin Dose Admin Losartan Potassium 25 mg DAILY PO 11/11/24 10:00 11/11/24 09:33 25 MG Hydralazine HCl 10 mg Q6HP PRN IV 11/10/24 18:15 Amlodipine Besylate 5 mg DAILY PO 11/11/24 10:00 11/11/24 09:32 5 MG Sodium Chloride 10 ml Q8HR IV 11/10/24 22:00 11/11/24 06:15 10 ML Acetaminophen/ Hydrocodone Bitart 1 tab Q4HP PRN PO 11/10/24 18:15 Acetaminophen 650 mg Q6HP PRN PO 11/10/24 18:15 11/11/24 09:44 650 MG Nitroglycerin 0.4 mg Q5MINP PRN SL 11/10/24 20:45 Morphine Sulfate 2 mg Q30M PRN IV 11/10/24 20:45 Enoxaparin Sodium 40 mg DAILY SC 11/11/24 10:00 11/11/24 09:34 40 MG Examination: GENERAL:Normal, HEENT:Normal, NECK:Normal, LUNGS:Normal, CVS:Normal, ABDOMEN:Normal, MSK:Normal, SKIN:Normal, NEURO:Normal, NEURO:Abnormal (left weakness), :Normal laboratory and microbiology Laboratory Tests 11/10/24 13:45 Test 11/10/24 13:45 Range/Units Serum Glucose 85 74-106 mg/dL Problem List/Assessment/Plan Problem List/Assessment/Plan #1 left arm weakness with cervical stenosis ?myelopathy: dr Goldberg consult #2 htn #3 obesity advance care planning- full code- time spent 18mins Plan discussed with: Patient Date of Service: Nov 11, 2024 Billing Provider: TARUN MOLINA MD Common Visit Codes: 64770-[id number] INP/OBS CARE(HIGH) Secondary Visit Codes: 70017-[id number] CARE PLAN 30 MINUTES TARUN MOLINA MD Nov 11, 2024 11:33
[2024-11-11 12:10] LABS: INR 0.99 (0.9-1.15); Partial Thromboplastin Time 25.7 SEC (24.5-34.5); Prothrombin Time 10.5 sec (9.3-11.8)
--- NOTE | 2024-11-11 12:17 | DVH ---
Carotid duplex REASON FOR EXAM: TIA CLINICAL HISTORY: TIA A Carotid Duplex Study was performed. INDICATION: TIA TECHNIQUE: Locke scale, color doppler imaging and spectral analysis were performed. FINDINGS: On locke scale and color imaging there is moderate intimal thickening seen along the commo n carotid ateries bilaterally, extending into the carotid bulbs with moderate plaque seen in the magallanes tid bulbs and internal carotids. Velocities are as follows: (measured in cm/S): Right CCA 94 Left CCA 88 Right ICA 114 Left ICA 108 Right ICA/CCA 1.2 Left ICA/CCA 1.2 Flow in the vertebral arteries is antegrade. IMPRESSION: 1. No hemodynamically significant stenosis based on NASCET criteria
[2024-11-12] VITALS (9 sets, daily range): BP systolic 131–166; BP diastolic 82–90; PULSE 63–122; RESP 14–20; TEMP 97.4–98.2; O2SAT 92–96
[2024-11-12] MEDS: hydrALAZINE HCL 20 MG/ML VL IV PRN (02:02)
[2024-11-12] MEDS: D5W/SOD CHLO 0.9% 1,000 ML IV SCH (04:30)
[2024-11-12] MEDS: PANTOPRAZOLE 40 MG TAB PO SCH (05:13)
--- NOTE | 2024-11-12 08:31 | DVHSR ---
APPROVED REPORT EXAM: Two-dimensional and M-mode echocardiogram with Doppler and color Doppler. Blood Pressure: 145/75 mmHg INDICATION Pre-Op hypertension RISK FACTORS Height: 5'10, Weight: 211 DIMENSIONS LVDd5.1 (3.8-5.7cm)LA (2D)4.5 (1.9-4.0cm)Aortic Root3.5 (2.0-3.7cm) LVDs3.3 (2.5-4.0cm)LA (MM) (1.9-4.0cm)Aortic Cusp Exc1.4 (1.5-2.0cm) EF (%) 60.0 (55-70%)Rt. Atrium3.1 (1.9-4.0cm)Asc. Aorta cm IVSd1.3 (0.7-1.1cm)RV (D) (1.8-2.4cm) PWd0.8 (0.7-1.1cm) Mitral Valve MitralMitral Stenosis E wave0.89m/sMV Mean GR.mmHg A wave1.05m/sMV Peak GR.236mmHg E/A ratio0.82D MVAcm2 DECEL [id number] 1/2 Timems Aortic Valve Aortic ValveAortic Stenosis V11.01m/Jagdish Mean GR.5mmHg V21.46m/Jagdish Peak GR.9mmHg LVOT Diameter2.2 (1.8-2.4cm)Doppler AVA2.63cm2 Pulmonic Valve V21.18m/s Tricuspid Valve TR Velocity2.16m/s [id number] Other Information Quality : Technically LimitedRhythm : Conclusion LVEF 55-60%, rv normal Left atrium mildly dilated mitral valve leaflets thickened but open well, mild to moderate mitral regurgitation no significant valve disease
[2024-11-12] MEDS: CYANOCOBALAMIN (B-12) 1000 MCG/1 ML VIAL IM ONE (08:44)
[2024-11-12 09:07] LABS: Anti-Centromere B Antibody <0.2 AI (0.0-0.9); Anti-Jo-1 Antibody <0.2 AI (0.0-0.9); Anti-dsDNA Antibody <1 IU/mL (0-9); Antichromatin Antibody <0.2 AI (0.0-0.9); Antiscleroderma-70 Antibody <0.2 AI (0.0-0.9); Sjogren's Anti-SS-A Antibody <0.2 AI (0.0-0.9); Sjogren's Anti-SS-B Antibody <0.2 AI (0.0-0.9)
--- NOTE | 2024-11-12 09:40 | DVHPN2 ---
Progress Note - Dictate Date Seen: Nov 12, 2024 Medical Necessity Reason Pt with a Central, PICC or Fol: No Subjective Mr. Howell is a 68 years old left-handed gentleman with a history of hypertension, he came to the [facility] on 11/10[facility]2024 with a chief complaint of left arm weakness I have seen and examined the to his nurse, he is doing fine, no new complaints Urinalysis, 11/10/2024: No UTI CBC, 11/10/2024: Unremarkable BMP 11/10/2024: Unremarkable CBC, 11/11/2024: 834, 822 Carotid Doppler, 11/11/2024: No hemodynamically significant stenosis based on NASCET criteria MRI head, 11/11/2024: No acute infarct, intracranial hemorrhage, mass effect, or hydrocephalus MRI C-spine, 11/11/2024: Multilevel cervical spondylosis most pronounced at C4- C5 where there is a right posterolateral disc protrusion. There is severe right neural foraminal stenosis at C4-C Severe right neural foraminal stenosis also noted at C3-C4 and moderate to severe bilateral neural foraminal stenosis at C6- C7. vital signs Vital Sign Date Time Temp Pulse Resp B/P (MAP) Pulse Ox O2 Delivery O2 Flow Rate FiO2 11/12/24 08:45 161/82 11/12/24 08:40 97.6 67 20 96 97.6 11/12/24 07:45 Room Air* 0 21 Total Intake and Output 11/11/24 11/11/24 11/12/24 15:00 23:00 07:00 Intake Total 1120 ml 1300 ml Balance 1120 ml 1300 ml medications Current Medications Medications Dose Ordered Sig/Cristian Route Start Time Stop Time Status Last Admin Dose Admin Losartan Potassium 25 mg DAILY PO 11/11/24 10:00 11/12/24 08:45 25 MG Hydralazine HCl 10 mg Q6HP PRN IV 11/10/24 18:15 11/12/24 08:44 10 MG Amlodipine Besylate 5 mg DAILY PO 11/11/24 10:00 11/12/24 08:45 5 MG Sodium Chloride 10 ml Q8HR IV 11/10/24 22:00 11/12/24 05:13 10 ML Acetaminophen/ Hydrocodone Bitart 1 tab Q4HP PRN PO 11/10/24 18:15 Hold Acetaminophen 650 mg Q6HP PRN PO 11/10/24 18:15 11/11/24 19:20 650 MG Nitroglycerin 0.4 mg Q5MINP PRN SL 11/10/24 20:45 Morphine Sulfate 2 mg Q30M PRN IV 11/10/24 20:45 Ibuprofen 400 mg Q8HP PRN PO 11/11/24 11:30 Pantoprazole Sodium 40 mg DAILY@0600 PO 11/12/24 06:00 Cyanocobalamin 100 mcg DAILY IM 11/13/24 10:00 objective General: the patient is well developed and nourished. No acute distress. MENTAL STATUS: Awake and alert. Oriented to person, place, time and general circumstances. Able to give personal history. SPEECH, LANGUAGE, HIGHER CORTICAL FUNCTION: no aphasia or dysathria. CRANIAL NERVES: Pupils are equal, round and reactive. EOMs full and conjugate. Facial sensation intact in all three divisions bilaterally. Mandibular strength intact. Facial muscles symmetrical and strength intact. SENSATION: Sensation to touch and pinprick is normal. MOTOR: Tone is normal except for diminished in the left upper extremity. Mild atrophy in the left upper extremity. No fasciculations. No abnormal movements or posturing. Muscle strength of the major groups in the er extremities is 5/5 except for 3/5 in the left shoulder, elbow, and 4/5 in the left gripping REFLEXES: Deep tendon reflexes normal and symmetrical. No pathological reflexes. CEREBELLAR/COORDINATION: No ataxia in the right arm GAIT/STATION: deferred laboratory and microbiology Laboratory Tests 11/10/24 13:45 Test 11/10/24 13:45 Range/Units Serum Glucose 85 74-106 mg/dL Problem List Progressive left upper extremity weakness, neck weakness without sensory symptoms, possibly he has amyotrophic lateral sclerosis/ALS Cervical spine spondylosis Assessment/Plan Monitoring Supportive treatment Telemetry Dr. Goldberg on case Consult Dr. Eva Jeffers or neuromuscular specialist More recommendation per clinical course This medical document was created using an electronic medical record system with [employer] dictation system. Although this document has been carefully reviewed, there may still be some phonetic and typographical errors. These areas are purely typographical due to imperfections of the software programs, and do not reflect any compromise in the patient's medical care. Prognosis poor Plan discussed with: Patient, Other KASSANDRA ALVA MD Nov 12, 2024 09:40
[2024-11-12] MEDS: ceFAZolin 1GM/50ML 100 ML IV ONE (15:07)
[2024-11-12] MEDS ORDERED: KETOROLAC TROMETH 30 MG/ML 1ML VIAL ONE (15:31)
[2024-11-12] MEDS ORDERED: MIDAZOLAM HCL 2MG/2ML 2ml VIAL (1mg/ml) ONE (15:31)
[2024-11-12] MEDS ORDERED: LIDOCAINE 2% (LOCAL ANESTH.) PF 5ml SDV ONE (15:31)
[2024-11-12] MEDS ORDERED: GLYCOPYRROLATE 0.2 MG/ML 1ML VIAL ONE (15:31)
[2024-11-12] MEDS ORDERED: ONDANSETRON HCL 4 MG/2 ML VIAL ONE (15:31)
[2024-11-12] MEDS ORDERED: HYDROmorphone HCL 2 MG/ML VL/or syr ONE (15:31)
[2024-11-12] MEDS ORDERED: ROCURONIUM 10MG/ML 10ML VIAL IV ONE (15:31)
[2024-11-12] MEDS ORDERED: PROPOFOL 10 MG/ML 20 ML IV ONE (15:31)
[2024-11-12] MEDS ORDERED: fentaNYL CITRATE 100 MCG/2 ML VL ONE (15:31)
--- NOTE | 2024-11-12 16:30 | DVHOP2 ---
Operative Report - 2 Report Details Date: 11/12/24 Preop Diagnosis: cervical spinal stenosis with myelopathy Postop Diagnosis: cerivcal spinal stenosis with myelopathy Surgeon: Cliff Goldberg MD Fine Arts Teacher: Irena Mancini NP Anesthesiologist: rich Anesthesia: General Consent: The patient was informed of the risks and benefits of the procedure. These include but are not limited to complications of anesthesia, postoperative infection, incomplete relief of symptoms, recurrence of symptoms, damage to blood vessels, nerves and tendons, deep venous thrombosis, pulmonary embolism and possible need for repeat surgery in the future. Name of Procedure Performed ssee detailed Procedure Details Procedure Details: Pre Op Diagnosis: Cervical Degenerative Disk Disease and Severe Spinal Stenosis Causing incapacitating neck pain, radiculopathy and progressive neurologic deficit Post Op Diagnosis: 1. Cervical Degenerative Disk Disease and Spinal Stenosis Causing incapacitating neck pain, radiculopathy and progressive neurologic deficit Procedure: Cervical 3 to 4 anterior cervical discectomy with Cervical 3-4 foraminotomies and facetectomies to decompression the spinal canal and Cervical 4 nerve roots Cervical 4 to 5 anterior cervical discectomy with Cervical 4-5 foraminotomies and facetectomies to decompression the spinal canal and Cervical 5 nerve roots Cervical 5 to 6 anterior cervical discectomy with Cervical 5-6 foraminotomies and facetectomies to decompression the spinal canal and Cervical 6 nerve roots Cervical 6 to 7 anterior cervical discectomy with cervical 6-7 foraminotomies and facetectomies to decompress then spinal canal and cervical 7 nerve roots Cervical 3-7 anterior cervical Fusion Cervical 3-7 anterior cervical instrumentation with freestanding cages Cervical 3-4 placement of allograft prosthetic device Cervical 4-5 placement of allograft prosthetic device Cervical 5-6 placement of allograft prosthetic device Cervical 6-7 placement of allograft prosthetic device Microscope for micro dissection Surgeon: Cliff Goldberg MD Anesthesia: General Assist: Irena Mancini NP Fluids and EBL: see anesthesia note Procedure Note: The patient was seen in the Pre-anesthesia Care Unit and the site of the incision was initialed by me with a felt tipped marker. All questions by the patient were answered to the satisfaction of the patient and the chart was reviewed. The patient was taken to the operating room and placed supine on the [facility] Flat top table. General anesthesia was induced. Neuromonitoring leads were placed. A rolled towel was placed between the shoulder blades to hyperextend out the chest which will allow better exposure of the cervical spine. Halter traction to 10 pounds was placed. The arms were padded and adducted to the patients side making sure all pulses in the hands were present. Tape traction was undertaken on the shoulders to give us better radiographic exposure of the distal cervical spine. A gel-pad was placed under the occiput and 5 degrees of extension was placed on the neck without adverse effects to the patient. The anterior neck was prepped and draped. Pre-operative antibiotics were given 30 minutes prior to the start of the procedure. A c-arm fluoroscope was used to yaniv out the incision site. At this time, a time out was taken per usual protocol. Next an incision was made through the skin with a 15 blade scalpel through the subcutaneous tissue down to the platysma. Self-retainers were placed. The platysma was incised along the longitudinal border with a Metzenbaum scissors. Blunt dissection was made through the deep cervical and pre-tracheal fascia taking care to protect the carotid sheath laterally and the Trachea/esophagus medially. The dissection was carried down to the prevertebral fascia. Any crossing vessels were ligated using a vascular clip or coagulated with a bovie. An esophageal retractor was next used to retract the trachea/esophagus and a bent [address] through the anterior annulus of the cervical disk and a lateral C-arm fluoroscopic image was taken to confirm that we were at the correct level. Next, bovie electrocautery was used to expose the bones of cervical 3,4,5,6 and 7 and bipolar electrocautery was used to lift up the Longus colli and capitus muscles. Black-Belt Self Retainers were used to retract the longus colli and capitus muscles bilaterally as well as the trachea/esophagus to the right and the carotid sheath to the left. Smooth thin Black-Belt retractors were placed proximally and distally and a needle was placed again in the anterior annulus of the disk and an image taken to confirm the correct level. At this point, the microscope was wheeled in and an 11 blade scalpel incised the anterior annulus of the cervical 3/4 and 4/5 and 5/6 and 6/7 disks. Next, straight and curved curettes removed the remainder of the disks all the way down to the posterior longitudinal ligament. Carefully, a Nora number one rongeur incised the posterior longitudinal ligament at the lateral end of the above disks and using a micro, blunt tip nerve hook to separate the posterior longitudinal ligament from the dura, alternating 1 mm and 2 mm Kerison rongeurs removed the posterior longitudinal ligament. Next, Kerison 1mm and 2 mm rongeurs were alternated to get under the uncinate processes and undercut them to perform foraminotomies and factectomies at the cervical 3/4 and 4/5 and 5/6 and 6/7 levels to decompress the central canal and cervical 4,5,6 and 7 nerve roots. Next the microscope was wheeled away and the c-arm fluoroscope was wheeled into the field and a lateral image was obtained. Increasing size graft trials were used starting at a 5 mm thick size until the proper tension in the disk space and height spiritism obtained. We then placed final free standing cages at C3/4 and 4/5 ,5/6 and 6/7 . Satisfactory placement was confirmed in the AP and lateral views using a C-arm fluoroscope. Copious irrigation of the wound with sterile saline and all bleeding was controlled before closure initiated. At this point, a [address] [place] [address] Drain was place deep to the Platysma muscle and the Platysma was approximated with one interrupted 0-Vicryl suture. The subcutaneous tissue was closed with interrupted 2-0 vicryl sutures and the skin was closed with prashanth. Sterile dressings were placed and a cervical collar placed, the patient extubated, transferred to the stretcher and taken to the Recovery Room in unremarkable condition. Other Notes: cpt codes: [id number] Condition Stable Disposition Still a Patient CLIFF GOLDBERG MD Nov 12, 2024 16:29
[2024-11-12] MEDS ORDERED: ONDANSETRON HCL 4 MG/2 ML VIAL IV PRN (16:45)
[2024-11-12] MEDS ORDERED: NITROGLYCERIN 0.4 MG SL TAB SL PRN (16:45)
[2024-11-12] MEDS ORDERED: ACETAMINOPHEN 325 MG TAB PO PRN (16:45)
[2024-11-12] MEDS ORDERED: MORPHINE SULFATE INJ 2 MG/ml SYRG IV PRN ×2 (16:45)
--- NOTE | 2024-11-12 16:54 | PRN ---
Misceleneous Note Note Note Surgical/procedural interval history and physical note Current H and P was reviewed. The patient was reexamined. Re-evaluation of the patient confirms the necessity for the scheduled procedure. No change has occurred in the patient's condition since the H and P/ spine consult was complete no less than 30 days ago. Physicians verification of informed consent The patient was counseled regarding the procedure, its indications, risks, potential complications, and alternatives. The risks/benefits/alternatives of surgery were explained to the patient in detail including but not limited to , stroke, paralysis, myocardial infarction, bleeding, infection, complications of anesthesia (dry mouth, sore throat, dental damage, respiratory depression, blindness), postoperative infection, incomplete relief of symptoms, recurrence of symptoms, damage to blood vessels, nerves and tendons, pulmonary embolism and possible need for repeat surgery in the future. Pain, damage to surrounding soft tissue structures, need for reoperation or future surgery, persistent pain/disability/deformity, bone graft collapse or extrusion of interbody device, instrumentation failure, need for instrumentation removal, dural tear, temporary or permanent nerve root damage, deep vein thrombosis, pulmonary embolism, were described to the patient in detail and the patient wishes to proceed. No guarantee of surgical outcome/improvement was implied. All of the questions were answered thoroughly, patient was agreeable to proceed and consents were obtained. Physicians verification of informed consent for blood transfusion There is a reasonable possibility that blood transfusions will be necessary as a result of the patient's procedure. I have discussed the following with the patient/patient's legal telecommunications sales representative. An explanation of benefits and risks of the transfusion of blood or blood products and possible alternatives. All questions have been answered to the patient's or they are legal representatives satisfaction. Informed consent -The patient has been informed of: -The nature of the proposed care, treatment, services, medications, interventions or procedures. -Potential benefits, risks or side effects, including potential problems related to the procedure. -The likelihood of achieving care treatment and Service goals -Possible alternatives to the procedure/proposed care, treatment and service. -The relative risks, benefits and side effects related to alternatives, inc luding possible results of not receiving care, treatment and services. -When indicated, any limitations on the confidentiality of the informed leaning from or about the patient. -if appropriate, the risks, benefits and alternatives of the drugs to be used for sedation/analgesia including moderate sedation. -if appropriate, patient has been provided information on the risks, benefits and alternatives to the transfusion of blood and/or blood products. -if appropriate, the patient has been provided information regarding the Juan Momeyer blood act. Call with questions Adrian Mancini [facility] Orthopaedic Spine Surgery nurse practitioner For Dr Dominique Goldberg Patient was examined, chart reviewed, labs evaluated, and diagnostic studies and findings analyzed. Case was discussed with Dr. Cliff Goldberg who formulated the plan of care. This medical document was created using an electronic medical record system with [employer] dictation system. Although this document has been carefully reviewed, there might still be some phonetic and typographical errors. These areas are purely typographical due to imperfections of the software programs, a nd do not reflect any compromise in the patient's medical care. FELICIA MANCINI NP Nov 12, 2024 16:54
[2024-11-12] MEDS: TRANEXAMIC ACID 20 ML ONE (18:23)
--- NOTE | 2024-11-12 20:51 | DVH ---
C-ARM FLUOROSCOPY: PROCEDURE: C4-C7 discectomy and fusion FLUOROSCOPY TIME: 33.9 seconds DAP: 8.74 mgy FINDINGS: Spot intraoperative C arm radiographs demonstrating cervical spine procedure. IMPRESSION: Please refer to surgical report for detailed findings.
[2024-11-12] MEDS: ONDANSETRON HCL 4 MG/2 ML VIAL IV ONE (21:00)
[2024-11-12] MEDS ORDERED: HYDROmorphone HCL 2 MG/ML VL/or syr IV PRN (21:00)
[2024-11-12] MEDS: DOCUSATE SOD 100 MG CAP PO SCH (22:35)
[2024-11-12] MEDS: CYCLOBENZAPRINE HCL 10 MG TAB PO SCH (22:35)
[2024-11-12] MEDS: ceFAZolin 1GM/50ML 50 ML IV SCH (22:35)
[2024-11-13] VITALS (7 sets, daily range): BP systolic 113–137; BP diastolic 69–97; PULSE 91–102; RESP 16–20; TEMP 97.3–98.3; O2SAT 91–95
[2024-11-13] MEDS: HYDROcodone-ACET 10/325MG TAB PO PRN (03:56)
--- NOTE | 2024-11-13 09:29 | DVHPN2 ---
Progress Note - Surgical Date Seen: Nov 13, 2024 Post op day Post op day: 1 Subjective Patient reports: No new complaints, Feels better Review of Systems: CVS:Normal, RESPIRATORY:Normal, GI:Normal, :Normal, MSK:Normal, NEURO:Abnormal (Left arm weakness, left hand weakness minimal intrinsics) Objective Vital signs Vital Sign Date Time Temp Pulse Resp B/P (MAP) Pulse Ox O2 Delivery O2 Flow Rate FiO2 11/13/24 05:15 97.7 102 17 137/97 (110) 93 97.7 11/12/24 21:51 Room Air* 0 21 Total Intake and Output 11/12/24 11/12/24 11/13/24 15:00 23:00 07:00 Intake Total 220 ml 720 ml Output Total 250 ml 300 ml Balance -30 ml 420 ml Medications Current Medications Medications Dose Ordered Sig/Cristian Route Start Time Stop Time Status Last Admin Dose Admin Losartan Potassium 25 mg DAILY PO 11/11/24 10:00 11/12/24 08:45 25 MG Hydralazine HCl 10 mg Q6HP PRN IV 11/10/24 18:15 11/12/24 11:59 10 MG Amlodipine Besylate 5 mg DAILY PO 11/11/24 10:00 11/12/24 08:45 5 MG Sodium Chloride 10 ml Q8HR IV 11/10/24 22:00 11/13/24 06:28 10 ML Acetaminophen/ Hydrocodone Bitart 1 tab Q4HP PRN PO 11/10/24 18:15 Hold Ibuprofen 400 mg Q8HP PRN PO 11/11/24 11:30 Hold Pantoprazole Sodium 40 mg DAILY@0600 PO 11/12/24 06:00 11/13/24 05:51 40 MG Cyanocobalamin 100 mcg DAILY IM 11/13/24 10:00 Dextrose/Sodium Chloride 1,000 ml @ 100 mls/hr Q10H IV 11/12/24 16:45 11/13/24 02:45 100 MLS/HR Ondansetron HCl 4 mg Q4HP PRN IV 11/12/24 16:45 Acetaminophen 650 mg Q6HP PRN PO 11/12/24 16:45 Acetaminophen/ Hydrocodone Bitart 1 tab Q6HP PRN PO 11/12/24 16:45 11/13/24 03:56 1 TAB Morphine Sulfate 1 mg Q4HP PRN IV 11/12/24 16:45 Cyclobenzaprine HCl 10 mg TID PO 11/12/24 22:00 11/13/24 05:51 10 MG Docusate Sodium 100 mg BID PO 11/12/24 22:00 11/12/24 22:35 100 MG Cefazolin Sodium 50 ml @ 100 mls/hr Q8H IV 11/12/24 23:00 11/14/24 15:29 11/13/24 05:51 100 MLS/HR Nitroglycerin 0.4 mg Q5MINP PRN SL 11/12/24 16:45 Morphine Sulfate 2 mg Q30M PRN IV 11/12/24 16:45 Laboratory Laboratory Tests 11/10/24 13:45 Test 11/10/24 13:45 Range/Units Serum Glucose 85 74-106 mg/dL Examination: GENERAL:Normal, HEENT:Normal, NECK:Normal (Left anterior surgical site well approximated with prashanth drain intact), LUNGS:Normal, CVS:Normal, ABDOMEN:Normal, MSK:Normal, SKIN:Normal (Surgical site free redness draining swelling signs of infection, drain is intact will be removed today), NEURO:Normal (Patient is demonstrating vast improvement on his left side and hand nursing consultant, he has about a 3/5 to where it was almost completely flaccid prior.), :Normal Problem List/Assessment/Plan Problems: (1) Acute post-operative pain (2) Muscle spasms of neck Assessment and Plan Disposition: Patient is cleared to discharge from a spine surgery perspective Discontinued today Patient has been up ambulating with front wheel walker Pain is well controlled Patient verbalizes no sore throat, states that he has not improvement in his left hand he has noticed, left arm is still slightly weak but improving continues to still have weak biceps and deltoids -Discharge RX: Pending -Follow up appointment: with Dr Goldberg in two weeks postop [id number] [facility] [address] Barakat [address] [place] [id number] -Pain: - IV pain meds post op day 1, with PO supplementation, goal is to progress weaning off IV medications and control pain with PO only. morphine 1mg q 4 hours (PAIN 7-10) - P.O. analgesics:Tylenol 650MG (PAIN 1-3) [place] 10/325 mg (PAIN 4-6) - Muscle relaxers scheduled administration. This is a beneficial medications for the incisional pain as it is mostly related to muscle spasms. Flexeril 10 mg TID - Cepacol throat lozenges as needed for sore throat -Antibiotics Operative recommendations: -Postoperative dose:-Post operative antibiotics cefazolin 1 g IV piggyback every 8 hours x 48 hours total of 6 doses -DVT PPX: -Hold all chemical DVT/ blood thinners for 14 days postoperatively -use mechanical DVT PPX such as SCD's, ambulation -Activity: -continue working with physical therapy -Sit at side of bed for meals -Goal: Ambulate independently and safely (may use assistive devices if needed) -Medical Therapy goals: -Afebrile- Patient may develop a expected post operative fever by day 2-3, this may not be accompanied with a elevation in WBC. if fever develops: Acetaminophen for fever. Albuterol nebulizer Tx every 12 hours for 24 hours to facilitate adequate lung expansion and prevent development of atelectasis. -Euglycemic: bloods sugars under 130mmol/L for optimal healing -Normotensive: Avoid events of hypertension. This helps to keep post operative healing intact and avoids destabilization of beneficial hemostatic coagulation. -Dressings -Anterior cervical patients: Changed as needed by nursing staff -Bowel management: -Colace 100mg bid -Diet: -patient tolerating regular diet -Incentive Spirometer: -10 x hour while awake, RN please educate and observe repeat demonstration, have IS at bedside POD #1 -X-rays: - none indicated at this time -Consults: -Physical Therapy evaluation, treatment recommendations, and discharge recommendations Call with questions Adrian Hanks [facility]- Orthopaedic Spine Surgery nurse practitioner For Dr Dominique Goldberg Patient was examined, chart reviewed, labs evaluated, and diagnostic studies and findings analyzed. Case was discussed with Dr. Cliff Goldberg who formulated the plan of care. This medical document was created using an electronic medical record system with RPostation system. Although this document has been carefully reviewed, there might still be some phonetic and typographical errors. These areas are purely typographical due to imperfections of the software programs, and do not reflect any compromise in the patient's medical care. Plan discussed with Plan discussed with: Patient, Other (Kelby brown [id number]) Visit Coding Surgery Date of Service if different f: Nov 13, 2024 Billing Provider: FELICIA HANKS NP Surgery Visit Codes: NOT BILLABLE FELICIA HANKS NP Nov 13, 2024 09:29
[2024-11-13] MEDS: CYANOCOBALAMIN (B-12) 1000 MCG/1 ML VIAL IM SCH (10:00)
--- NOTE | 2024-11-13 13:17 | DVHPN2 ---
Reviewed: Care Plan, H&P, Labs, Medications, Previous Orders, Radiology Changes from previous H/P or p: No Changes Eyes: No Pain, No Vision change, No Conjunctivae inflammation, No Eyelid inflammation, No Other, No Redness ENT: No Ear pain, No Ear discharge, No Nose pain, No Nose discharge, No Nose congestion, No Mouth pain, No Mouth swelling, No Throat pain, No Throat swelling, No Other Cardiovascular: No Chest Pain, No Palpitations, No Orthopnea, No Paroxysmal Noc. Dyspnea, No Edema, No Lt Headedness, No Other Respiratory: No Cough, No Dry, No Shortness of breath, No SOB with excertion, No Wheezing, No Hemoptysis, No Pleuritic Pain, No Sputum, No Other Gastrointestinal: No Nausea, No Vomiting, No Abdominal Pain, No Diarrhea, No Constipation, No Melena, No Hematochezia, No Other Genitourinary: No Dysuria, No Frequency, No Incontinence, No Hematuria, No Retention, No Other Musculoskeletal: other (Muscle atrophy of upper extremity); No neck pain, No shoulder pain, No arm pain, No back pain, No hand pain, No leg pain, No foot pain Skin: No Rash, No Lesions, No Jaundice, No Bruising, No Other Objective Vitals Vital Signs Date Time Temp Pulse Resp B/P (MAP) Pulse Ox O2 Delivery O2 Flow Rate FiO2 11/13/24 10:55 122/85 11/13/24 09:00 97.6 91 17 94 97.6 11/12/24 21:51 Room Air* 0 21 Intake/Output Intake and Output 11/13/24 07:00 Intake Total 940 ml Output Total 550 ml Balance 390 ml Intake Oral 620 ml IV Total 320 ml Output Urine Total 550 ml Medications Current Medications Medications Dose Ordered Sig/Cristian Route Start Time Stop Time Status Last Admin Dose Admin Losartan Potassium 25 mg DAILY PO 11/11/24 10:00 11/13/24 10:55 25 MG Hydralazine HCl 10 mg Q6HP PRN IV 11/10/24 18:15 11/12/24 11:59 10 MG Amlodipine Besylate 5 mg DAILY PO 11/11/24 10:00 11/12/24 08:45 5 MG Sodium Chloride 10 ml Q8HR IV 11/10/24 22:00 11/13/24 06:28 10 ML Acetaminophen/ Hydrocodone Bitart 1 tab Q4HP PRN PO 11/10/24 18:15 Hold Ibuprofen 400 mg Q8HP PRN PO 11/11/24 11:30 Hold Pantoprazole Sodium 40 mg DAILY@0600 PO 11/12/24 06:00 11/13/24 05:51 40 MG Cyanocobalamin 100 mcg DAILY IM 11/13/24 10:00 Dextrose/Sodium Chloride 1,000 ml @ 100 mls/hr Q10H IV 11/12/24 16:45 11/13/24 02:45 100 MLS/HR Ondansetron HCl 4 mg Q4HP PRN IV 11/12/24 16:45 Acetaminophen 650 mg Q6HP PRN PO 11/12/24 16:45 Acetaminophen/ Hydrocodone Bitart 1 tab Q6HP PRN PO 11/12/24 16:45 11/13/24 13:03 1 TAB Morphine Sulfate 1 mg Q4HP PRN IV 11/12/24 16:45 Cyclobenzaprine HCl 10 mg TID PO 11/12/24 22:00 11/13/24 05:51 10 MG Docusate Sodium 100 mg BID PO 11/12/24 22:00 11/13/24 10:55 100 MG Cefazolin Sodium 50 ml @ 100 mls/hr Q8H IV 11/12/24 23:00 11/14/24 15:29 11/13/24 05:51 100 MLS/HR Nitroglycerin 0.4 mg Q5MINP PRN SL 11/12/24 16:45 Morphine Sulfate 2 mg Q30M PRN IV 11/12/24 16:45 Laboratory Results Laboratory Tests 11/10/24 13:45 Urinalysis Test 11/10/24 15:31 Urine Color Light-yellow (Yellow) Urine Clarity Clear (Clear) Urine pH 6.0 (5.0-9.0) Urine Specific [place] 1.020 (1.001-1.035) Urine Protein Negative (Negative) Urine Ketones Negative (Negative) Urine Blood Trace /uL (Negative) H Urine Nitrite Negative (Negative) Urine Bilirubin Negative (Negative) Urine Urobilinogen Normal mg/dL (Negative) Urine Leukocyte Esterase Negative /uL (Negative) Urine RBC 3 /hpf (0 - 3) Urine Microscopic WBC 1 /HPF (0-3) Urine Squamous Epithelial Cells None seen /hpf (<5) Urine Bacteria None seen /hpf (None Seen) Urine Mucus Few (None Seen) Urine Glucose Normal mg/dL (Normal) Labs and/or images reviewed: Labs reviewed by me, Image(s) reviewed by me Assessment/Plan Assessment/Plan #1 left arm weakness with cervical stenosis s/p C-spine surgery by Dr. Goldberg on 11/11/2024, continue pain medications and physical therapy #2 htn #3 obesity Plan discussed with: Patient Date of Service: Nov 13, 2024 Billing Provider: LALIE HERNANDEZ MD Common Visit Codes: [id number] INP/OBS CARE(HIGH) ALLIE HERNANDEZ MD Nov 13, 2024 13:17
[2024-11-14] VITALS (9 sets, daily range): BP systolic 133–153; BP diastolic 67–100; PULSE 89–100; RESP 12–20; TEMP 97.3–98.1; O2SAT 93–97
--- NOTE | 2024-11-14 09:46 | DVHPN2 ---
Reviewed: Care Plan, H&P, Labs, Medications, Previous Orders, Radiology Changes from previous H/P or p: No Changes Eyes: No Pain, No Vision change, No Conjunctivae inflammation, No Eyelid inflammation, No Other, No Redness ENT: No Ear pain, No Ear discharge, No Nose pain, No Nose discharge, No Nose congestion, No Mouth pain, No Mouth swelling, No Throat pain, No Throat swelling, No Other Cardiovascular: No Chest Pain, No Palpitations, No Orthopnea, No Paroxysmal Noc. Dyspnea, No Edema, No Lt Headedness, No Other Respiratory: No Cough, No Dry, No Shortness of breath, No SOB with excertion, No Wheezing, No Hemoptysis, No Pleuritic Pain, No Sputum, No Other Gastrointestinal: No Nausea, No Vomiting, No Abdominal Pain, No Diarrhea, No Constipation, No Melena, No Hematochezia, No Other Genitourinary: No Dysuria, No Frequency, No Incontinence, No Hematuria, No Retention, No Other Musculoskeletal: other (Muscle atrophy of upper extremity); No neck pain, No shoulder pain, No arm pain, No back pain, No hand pain, No leg pain, No foot pain Skin: No Rash, No Lesions, No Jaundice, No Bruising, No Other Objective Vitals Vital Signs Date Time Temp Pulse Resp B/P (MAP) Pulse Ox O2 Delivery O2 Flow Rate FiO2 11/14/24 05:00 98.1 93 20 136/67 (90) 93 98.1 11/13/24 20:00 Room Air* 0 21 Intake/Output Intake and Output 11/14/24 07:00 Intake Total 1210 ml Output Total 520 ml Balance 690 ml Intake Oral 1160 ml IV Total 50 ml Output Urine Total 520 ml # Voids 4 Medications Current Medications Medications Dose Ordered Sig/Cristian Route Start Time Stop Time Status Last Admin Dose Admin Losartan Potassium 25 mg DAILY PO 11/11/24 10:00 11/13/24 10:55 25 MG Hydralazine HCl 10 mg Q6HP PRN IV 11/10/24 18:15 11/12/24 11:59 10 MG Amlodipine Besylate 5 mg DAILY PO 11/11/24 10:00 11/12/24 08:45 5 MG Sodium Chloride 10 ml Q8HR IV 11/10/24 22:00 11/14/24 06:22 10 ML Acetaminophen/ Hydrocodone Bitart 1 tab Q4HP PRN PO 11/10/24 18:15 Hold Ibuprofen 400 mg Q8HP PRN PO 11/11/24 11:30 Hold Pantoprazole Sodium 40 mg DAILY@0600 PO 11/12/24 06:00 11/14/24 06:20 40 MG Cyanocobalamin 100 mcg DAILY IM 11/13/24 10:00 Ondansetron HCl 4 mg Q4HP PRN IV 11/12/24 16:45 Acetaminophen 650 mg Q6HP PRN PO 11/12/24 16:45 Acetaminophen/ Hydrocodone Bitart 1 tab Q6HP PRN PO 11/12/24 16:45 11/14/24 06:21 1 TAB Morphine Sulfate 1 mg Q4HP PRN IV 11/12/24 16:45 Cyclobenzaprine HCl 10 mg TID PO 11/12/24 22:00 11/14/24 06:20 10 MG Docusate Sodium 100 mg BID PO 11/12/24 22:00 11/13/24 10:55 100 MG Cefazolin Sodium 50 ml @ 100 mls/hr Q8H IV 11/12/24 23:00 11/14/24 15:29 11/14/24 06:22 100 MLS/HR Nitroglycerin 0.4 mg Q5MINP PRN SL 11/12/24 16:45 Morphine Sulfate 2 mg Q30M PRN IV 11/12/24 16:45 Laboratory Results Laboratory Tests 11/10/24 13:45 Urinalysis Test 11/10/24 15:31 Urine Color Light-yellow (Yellow) Urine Clarity Clear (Clear) Urine pH 6.0 (5.0-9.0) Urine Specific [place] 1.020 (1.001-1.035) Urine Protein Negative (Negative) Urine Ketones Negative (Negative) Urine Blood Trace /uL (Negative) H Urine Nitrite Negative (Negative) Urine Bilirubin Negative (Negative) Urine Urobilinogen Normal mg/dL (Negative) Urine Leukocyte Esterase Negative /uL (Negative) Urine RBC 3 /hpf (0 - 3) Urine Microscopic WBC 1 /HPF (0-3) Urine Squamous Epithelial Cells None seen /hpf (<5) Urine Bacteria None seen /hpf (None Seen) Urine Mucus Few (None Seen) Urine Glucose Normal mg/dL (Normal) Labs and/or images reviewed: Labs reviewed by me, Image(s) reviewed by me Assessment/Plan Assessment/Plan Covering for Dr. Llanos #1 left arm weakness with cervical stenosis s/p C-spine surgery by Dr. 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
[2024-11-15] VITALS (8 sets, daily range): BP systolic 131–170; BP diastolic 87–102; PULSE 77–94; RESP 16–20; TEMP 97.7–98.4; O2SAT 93–95
[2024-11-15] MEDS ORDERED: THROAT LOZENGES(CEPASTAT) MT PRN (03:00)
--- NOTE | 2024-11-15 10:37 | DVHPN2 ---
Reviewed: Care Plan, H&P, Labs, Medications, Previous Orders, Radiology Changes from previous H/P or p: No Changes Eyes: No Pain, No Vision change, No Conjunctivae inflammation, No Eyelid inflammation, No Other, No Redness ENT: No Ear pain, No Ear discharge, No Nose pain, No Nose discharge, No Nose congestion, No Mouth pain, No Mouth swelling, No Throat pain, No Throat swelling, No Other Cardiovascular: No Chest Pain, No Palpitations, No Orthopnea, No Paroxysmal Noc. Dyspnea, No Edema, No Lt Headedness, No Other Respiratory: No Cough, No Dry, No Shortness of breath, No SOB with excertion, No Wheezing, No Hemoptysis, No Pleuritic Pain, No Sputum, No Other Gastrointestinal: No Nausea, No Vomiting, No Abdominal Pain, No Diarrhea, No Constipation, No Melena, No Hematochezia, No Other Genitourinary: No Dysuria, No Frequency, No Incontinence, No Hematuria, No Retention, No Other Musculoskeletal: other (Muscle atrophy of upper extremity); No neck pain, No shoulder pain, No arm pain, No back pain, No hand pain, No leg pain, No foot pain Skin: No Rash, No Lesions, No Jaundice, No Bruising, No Other Objective Vitals Vital Signs Date Time Temp Pulse Resp B/P (MAP) Pulse Ox O2 Delivery O2 Flow Rate FiO2 11/15/24 09:59 160/100 11/15/24 08:47 97.8 89 18 93 97.8 11/14/24 20:00 Room Air* 0 21 Intake/Output Intake and Output 11/15/24 06:59 Intake Total 1970 ml Balance 1970 ml Intake Oral 1920 ml IV Total 50 ml # Voids 8 # Bowel Movements 3 Medications Current Medications Medications Dose Ordered Sig/Cristian Route Start Time Stop Time Status Last Admin Dose Admin Losartan Potassium 25 mg DAILY PO 11/11/24 10:00 11/15/24 09:59 25 MG Hydralazine HCl 10 mg Q6HP PRN IV 11/10/24 18:15 11/12/24 11:59 10 MG Amlodipine Besylate 5 mg DAILY PO 11/11/24 10:00 11/15/24 09:58 5 MG Sodium Chloride 10 ml Q8HR IV 11/10/24 22:00 11/15/24 06:16 10 ML Acetaminophen/ Hydrocodone Bitart 1 tab Q4HP PRN PO 11/10/24 18:15 Hold Ibuprofen 400 mg Q8HP PRN PO 11/11/24 11:30 Hold Pantoprazole Sodium 40 mg DAILY@0600 PO 11/12/24 06:00 11/15/24 06:08 40 MG Cyanocobalamin 100 mcg DAILY IM 11/13/24 10:00 11/15/24 09:57 100 MCG Ondansetron HCl 4 mg Q4HP PRN IV 11/12/24 16:45 Acetaminophen 650 mg Q6HP PRN PO 11/12/24 16:45 Acetaminophen/ Hydrocodone Bitart 1 tab Q6HP PRN PO 11/12/24 16:45 11/15/24 03:12 1 TAB Morphine Sulfate 1 mg Q4HP PRN IV 11/12/24 16:45 Cyclobenzaprine HCl 10 mg TID PO 11/12/24 22:00 11/15/24 06:08 10 MG Docusate Sodium 100 mg BID PO 11/12/24 22:00 11/15/24 10:01 100 MG Nitroglycerin 0.4 mg Q5MINP PRN SL 11/12/24 16:45 Morphine Sulfate 2 mg Q30M PRN IV 11/12/24 16:45 Throat Lozenges 1 hugh Q2HP PRN MT 11/15/24 03:00 Laboratory Results Laboratory Tests 11/10/24 13:45 Urinalysis Test 11/10/24 15:31 Urine Color Light-yellow (Yellow) Urine Clarity Clear (Clear) Urine pH 6.0 (5.0-9.0) Urine Specific [place] 1.020 (1.001-1.035) Urine Protein Negative (Negative) Urine Ketones Negative (Negative) Urine Blood Trace /uL (Negative) H Urine Nitrite Negative (Negative) Urine Bilirubin Negative (Negative) Urine Urobilinogen Normal mg/dL (Negative) Urine Leukocyte Esterase Negative /uL (Negative) Urine RBC 3 /hpf (0 - 3) Urine Microscopic WBC 1 /HPF (0-3) Urine Squamous Epithelial Cells None seen /hpf (<5) Urine Bacteria None seen /hpf (None Seen) Urine Mucus Few (None Seen) Urine Glucose Normal mg/dL (Normal) Labs and/or images reviewed: Labs reviewed by me, Image(s) reviewed by me Assessment/Plan Assessment/Plan Covering for Dr. Llanos #1 left arm weakness with cervical stenosis s/p C-spine surgery by Dr. Goldberg on 11/11/2024, continue pain medications and physical therapy #2 htn #3 obesity Patient still complains of moderate pain and weakness in the left upper extremity Possible discharge to [facility] facility on Saturday for physical therapy per 's request Continue physical therapy Plan discussed with: Patient Date of Service: Nov 15, 2024 Billing Provider: ALLIE HERNANDEZ MD Common Visit Codes: [id number] INP/OBS CARE(HIGH) ALLIE HERNANDEZ MD Nov 15, 2024 10:37
[2024-11-16] VITALS (7 sets, daily range): BP systolic 142–161; BP diastolic 92–105; PULSE 74–89; RESP 18–20; TEMP 97.7–98; O2SAT 93–96
--- NOTE | 2024-11-16 10:54 | DVHPN2 ---
Progress Note - Dictate Date Seen: Nov 16, 2024 Medical Necessity Reason Pt with a Central, PICC or Fol: No Subjective Mr. Howell is a 68 years old left-handed gentleman with a history of hypertension, [facility]24 with a chief complaint of left arm weakness He had cervical spine diskectomy and fusion on 11/12/2024 I have seen and examined the to his nurse, he is doing fine, no new complaints. No change in the left arm weakness I have personally discussed with Dr. Goldberg Urinalysis, 11/10/2024: No UTI CBC, 11/10/2024: Unremarkable BMP 11/10/2024: Unremarkable CBC, 11/11/2024: 834, 822 Carotid Doppler, 11/11/2024: No hemodynamically significant stenosis based on NASCET criteria MRI head, 11/11/2024: No acute infarct, intracranial hemorrhage, mass effect, or hydrocephalus MRI C-spine, 11/11/2024: Multilevel cervical spondylosis most pronounced at C4- C5 where there is a right posterolateral disc protrusion. There is severe right neural foraminal stenosis at C4-C Severe right neural foraminal stenosis also noted at C3-C4 and moderate to severe bilateral neural foraminal stenosis at C6- C7. vital signs Vital Sign Date Time Temp Pulse Resp B/P (MAP) Pulse Ox O2 Delivery O2 Flow Rate FiO2 11/16/24 09:18 147/105 11/16/24 08:14 97.9 86 20 94 97.9 11/15/24 20:00 Room Air* 0 21 Total Intake and Output 11/15/24 11/15/24 11/16/24 15:00 23:00 07:00 Intake Total 700 ml 260 ml Balance 700 ml 260 ml medications Current Medications Medications Dose Ordered Sig/Cristian Route Start Time Stop Time Status Last Admin Dose Admin Losartan Potassium 25 mg DAILY PO 11/11/24 10:00 11/16/24 09:18 25 MG Hydralazine HCl 10 mg Q6HP PRN IV 11/10/24 18:15 11/12/24 11:59 10 MG Amlodipine Besylate 5 mg DAILY PO 11/11/24 10:00 11/16/24 09:17 5 MG Sodium Chloride 10 ml Q8HR IV 11/10/24 22:00 11/16/24 05:53 10 ML Acetaminophen/ Hydrocodone Bitart 1 tab Q4HP PRN PO 11/10/24 18:15 Hold Ibuprofen 400 mg Q8HP PRN PO 11/11/24 11:30 Hold Pantoprazole Sodium 40 mg DAILY@0600 PO 11/12/24 06:00 11/15/24 06:08 40 MG Cyanocobalamin 100 mcg DAILY IM 11/13/24 10:00 11/16/24 09:17 100 MCG Ondansetron HCl 4 mg Q4HP PRN IV 11/12/24 16:45 Acetaminophen 650 mg Q6HP PRN PO 11/12/24 16:45 Acetaminophen/ Hydrocodone Bitart 1 tab Q6HP PRN PO 11/12/24 16:45 11/15/24 03:12 1 TAB Morphine Sulfate 1 mg Q4HP PRN IV 11/12/24 16:45 Cyclobenzaprine HCl 10 mg TID PO 11/12/24 22:00 11/15/24 13:35 10 MG Docusate Sodium 100 mg BID PO 11/12/24 22:00 11/15/24 10:01 100 MG Nitroglycerin 0.4 mg Q5MINP PRN SL 11/12/24 16:45 Morphine Sulfate 2 mg Q30M PRN IV 11/12/24 16:45 Throat Lozenges 1 hugh Q2HP PRN MT 11/15/24 03:00 objective General: the patient is well developed and nourished. No acute distress. MENTAL STATUS: Awake and alert. Oriented to person, place, time and general circumstances. Able to give personal history. SPEECH, LANGUAGE, HIGHER CORTICAL FUNCTION: no aphasia or dysathria. CRANIAL NERVES: Pupils are equal, round and reactive. EOMs full and conjugate. Facial sensation intact in all three divisions bilaterally. Mandibular strength intact. Facial muscles symmetrical and strength intact. SENSATION: Sensation to touch and pinprick is normal. MOTOR: Tone is normal except for diminished in the left upper extremity. Mild atrophy in the left upper extremity. No fasciculations. No abnormal movements or posturing. Muscle strength of the major groups in the er extremities is 5/5 except for 3/5 in the left shoulder, elbow, and 3-4/5 in the left gripping REFLEXES: Deep tendon reflexes normal and symmetrical. No pathological reflexes. CEREBELLAR/COORDINATION: No ataxia in the right arm GAIT/STATION: deferred laboratory and microbiology Laboratory Tests 11/10/24 13:45 Test 11/10/24 13:45 Range/Units Serum Glucose 85 74-106 mg/dL Problem List Progressive left upper extremity weakness, neck weakness without sensory symptoms, possibly he has amyotrophic lateral sclerosis/ALS Cervical spine spondylosis Assessment/Plan Monitoring Supportive treatment Telemetry Dr. Goldberg on case Consult Dr. Eva Jeffers or neuromuscular specialist (contact information provided) More recommendation per clinical course This medical document was created using an electronic medical record system with [employer] dictation system. Although this document has been carefully reviewed, there may still be some phonetic and typographical errors. These areas are purely typographical due to imperfections of the software programs, and do not reflect any compromise in the patient's medical care. Prognosis poor Dietary Evaluation Review Recommendations by RD: Dietary education by RD Comments: 1) Add 2g Na restriction to diet. Encourage optimal PO intake 2) Consider soluble fiber supplement to promote normal BM 3) Refer to outpatient RD for weight management 4) Follow-up with orthopedic surgery and physical therapy 5) Continue to monitor I&O, labs, and skin integrity Expected Outcomes/Goals: 1) appetite and labs to improve 2) constipation to resolve 3) f/u in 3-5 days Plan discussed with: Patient, Other KASSANDRA ALVA MD Nov 16, 2024 10:54
[2024-11-16] MEDS ORDERED: CYCL-837 PO (16:52)
[2024-11-16] MEDS ORDERED: HYDR-4902 PO (16:52)
--- NOTE | 2024-11-16 17:07 | DVHDS2 ---
Discharge Summary Date of Admission Nov 10, 2024 at 20:41 Date of Discharge: Nov 16, 2024 Admitting Diagnosis Hypertensive emergency Labs/Diagnostic Data: Laboratory Results Test 11/11/24 11:30 11/11/24 11:20 11/11/24 09:25 11/10/24 15:31 Prothrombin Time 10.5 sec (9.3-11.8) Prothrombin Time INR 0.99 (0.9-1.15) Activated Partial Thromboplast Time 25.7 SEC (24.5-34.5) Creatine Kinase 822 U/L (46-171) Erythrocyte Sedimentation Rate 1 mm/hr (0-20) Hemoglobin A1c 5.4 % A1C (<5.7) C-Reactive Protein High Sensitivity 0.17 mg/dL (<1.0) Aldolase 8.5 U/L (3.3-10.3) Vitamin B12 Level 333 pg/mL (211-911) Vitamin D 25-Hydroxy 38.0 ng/mL (30.0-100) Thyroid Stimulating Hormone (TSH) 1.86 uIU/mL (0.55-4.78) Rheumatoid Factor <10.0 IU/mL (<14.0) Anti-Cyclic Citrullinated Peptide 6 units (0-19) Anti-Nuclear Antibody Comment Comment (.) JARON-1 Antibody <0.2 AI (0.0-0.9) SS-A/Ro Antibody <0.2 AI (0.0-0.9) SS-B/La Antibody <0.2 AI (0.0-0.9) Sm Antibody <0.2 AI (0.0-0.9) FISHER MUSSEL Antibody <0.2 AI (0.0-0.9) Scl-70 (Scleroderma) Antibody <0.2 AI (0.0-0.9) Anti-Double Strand DNA Antibody <1 IU/mL (0-9) Chromatin Antibody <0.2 AI (0.0-0.9) Centromere B Antibody <0.2 AI (0.0-0.9) Urine Color Light-yellow (Yellow) Urine Clarity Clear (Clear) Urine pH 6.0 (5.0-9.0) Urine Specific [place] 1.020 (1.001-1.035) Urine Protein Negative (Negative) Urine Ketones Negative (Negative) Urine Blood Trace /uL (Negative) Urine Nitrite Negative (Negative) Urine Bilirubin Negative (Negative) Urine Urobilinogen Normal mg/dL (Negative) Urine Leukocyte Esterase Negative /uL (Negative) Urine RBC 3 /hpf (0 - 3) Urine Microscopic WBC 1 /HPF (0-3) Urine Squamous Epithelial Cells None seen /hpf (<5) Urine Bacteria None seen /hpf (None Seen) Urine Mucus Few (None Seen) Urine Glucose Normal mg/dL (Normal) Test 11/10/24 13:45 11/10/24 13:26 White Blood Count 7.9 10^3/uL (4.4-10.8) Red Blood Count 5.57 10^6/uL (4.5-5.90) Hemoglobin 17.3 g/dL (13.5-17.5) Hematocrit 49.4 % (41.0-53.0) Mean Corpuscular Volume 88.6 fL (80.0-100.0) Mean Corpuscular Hemoglobin 31.0 pg (28.0-32.0) Mean Corpuscular Hemoglobin Concent 35.0 g/dL (32.0-36.0) Red Cell Distribution Width 13.1 % (11.8-14.3) Platelet Count 144 10^3/uL (140-450) Mean Platelet Volume 8.1 fL (6.9-10.8) Neutrophils (%) (Auto) 65.9 % (37.0-80.0) Lymphocytes (%) (Auto) 22.5 % (10.0-50.0) Monocytes (%) (Auto) 7.9 % (0.0-12.0) Eosinophils (%) (Auto) 2.2 % (0.0-7.0) Basophils (%) (Auto) 1.5 % (0.0-2.0) Neutrophils # (Auto) 5.2 10 ^3/uL (1.6-8.6) Lymphocytes # (Auto) 1.8 10 ^3/uL (0.4-5.4) Monocytes # (Auto) 0.6 10 ^3/uL (0-1.3) Eosinophils # (Auto) 0.2 10 ^3/uL (0-0.8) Basophils # (Auto) 0.1 10 ^3/uL (0-0.2) Nucleated Red Blood Cells 0.1 % Sodium Level 142 mmol/L (136-145) Potassium Level 4.1 mmol/L (3.5-5.1) Chloride Level 108 mmol/L (98-107) Carbon Dioxide Level 24 mmol/L (20-31) Anion Gap 10 (5-15) Blood Urea Nitrogen 15 mg/dL (9-23) Creatinine 1.09 mg/dL (0.700-1.30) Glomerular Filtration Rate Calc 74 mL/min (>90) BUN/Creatinine Ratio 13.8 (10.0-20.0) Serum Glucose 85 mg/dL (74-106) Calcium Level 10.1 mg/dL (8.7-10.4) Troponin I High Sensitivity 8 ng/L (</=54) POC Glucose 90 mg/dl (70-106) Other Laboratory Tests 11/10/24 13:45 Brief Hx & Hospital Course: History of Present Illness The patient is a 68-year-old male with past medical history of hypertension who presented to [facility] ED with complaint of left-sided weakness. Patient reports he has been experiencing left-sided weakness since February,, [place] by his PCP Dr. Matthews to have an MRI. Patient was seen and evaluated in the ED, laboratory data shows WBC 7.9, platelets 144, sodium 142, potassium 4.1, BUN 15, creatinine 1.09, GFR 74, glucose 85, troponin 8, calcium 10.1, blood pressure 175/105 trending down to 163/95, heart rate 65, temperature 98.1 F, O2 saturation 95% on room air. Patient was given labetalol 10 mg IV, please see medication orders section in the computer. On my assessment, patient denied chest pain, no headache, no dizziness no diaphoresis, no shortness of breath, no nausea, no vomiting, no fever, no chills. Patient was admitted for further evaluation and medical management. Course of hospitalization: Patient had MRI of the cervical spine which revealed severe cervical stenosis. Patient had spinal surgery consultation, with the patient was subsequently undergoing cervical spinal surgery. Postoperatively, patient was has been ambulating, and tolerating oral intake, with adequate pain management. Patient continued to have some weakness to left upper extremity for which Neurology consultation with the findings. After I assessed with the patient today, he states that he actually has been better use of his hand then prior to coming in the hospital. Patient has been cleared for discharge by his surgical standpoint. Patient will be discharged home and is instructed to follow up with spine surgery in 1-2 weeks. Patient will be continued on with pain management in the form of [place] 5/325 every 8 hours as needed as well as being provided Flexeril5 mg p.o. q.12 hours as needed for muscle spasms. Patient was will have home health services and physical therapy established through [facility]. Patient was agreeable with discharge plan. All questions answered. General: Alert and Oriented x3. No acute distress. Well-nourished. Eyes: EOMI. Anicteric. HENT: Moist mucous membranes. Lungs: Clear to auscultation bilaterally. No accessory muscle use. Cardiovascular: Regular rate and rhythm. No murmur. No JVD. Abdomen: Soft, non-tender and non-distended. No palpable masses. Extremities: No edema. Non-tender. Skin: No rashes or lesions. Warm. Neurologic: No focal neurological deficits. CN II-XII grossly intact, but not individually tested. Psychiatric: Cooperative. Appropriate mood and affect. Total time spent with patient discussing and formulating plan of care: 35 minutes. This medical document was created using an electronic medical record system with [employer] dictation system. Although this document has been carefully reviewed, there may still be some phonetic and typographical errors. These areas are purely typographical due to imperfections of the software programs, and do not reflect any compromise in the patient's medical care. Operations or Procedures 11/12/2024: Cervical spinal surgery Condition at Discharge: Fair Final Diagnosis/Problems List cerivcal spinal stenosis with myelopathy Secondary diagnosis: -Hypertension -obesity Discharge Disposition: Home with Health Services Discharge Instruct/Medications Diet: Cardiac 2g Na,low cholest Activity: No Restrictions, As Tolerated Follow Up/Referral: Dr. Goldberg in 1-2 weeks Medications: [place] 5/325 q8hrs as needed for moderate to severe pain Scheduled Cyclobenzaprine Hcl (Cyclobenzaprine Hcl), 1 TAB PO BID Hydrocodone-Acetaminophen (Hydrocodone Bitartrate/AC 5-325 mg), 1 TAB PO Q8HR Losartan Potassium (Losartan Potassium), 1 TAB PO DAILY, (Reported) Miscellaneous Medications Ibuprofen Micronized (Ibuprofen), TAB PO, (Reported) 36 Discharge Statement: "Patient was advised to return to the ER or call 911 if any headaches, dizziness, shortness of breath, chest pain, abdominal pain, bleeding, fevers, or worsening of medical condition. Patient was counseled about treatment plan, medications, possible side effects, patientverbalized understanding. All questions were answered to the best of my ability. This discharge took greater then 30 minutes in planning, reviewing documentation, counseling the patient, and discussing with other team members." ASSESSMENT ASSESSMENT Assessment cerivcal spinal stenosis with myelopathy Date of Service: Nov 16, 2024 Billing Provider: SIMONE JOHNSON NP Common Visit Codes: [id number] DISCH DAY >30min SIMONE JOHNSON NP Nov 16, 2024 17:07
== END 2024-11-16 18:51 | disposition home health service (06) | DRG 472 ==
LOC: ER 13:06 → OVERFLOW 20:41 → TELE-EAST 22:10 → EAST 11-11 20:08 → TELE-EAST 11-12 16:33
PROVIDERS: ADMIT Nurse Practitioner Acute Care; ATTEND Nurse Practitioner Acute Care
PROC: 0RB30ZZ Excision of Cervical Vertebral Disc, Open Approach (ICD-10-PCS; 2024-11-12)
PROC: 01N10ZZ Release Cervical Nerve, Open Approach (ICD-10-PCS; 2024-11-12)
PROC: 00NW0ZZ Release Cervical Spinal Cord, Open Approach (ICD-10-PCS; 2024-11-12)
PROC: 4A11X4G Monitoring of Peripheral Nervous Electrical Activity, Intraoperative, External Approach (ICD-10-PCS; 2024-11-12)
PROC: 0RG20A0 Fusion of 2 or more Cervical Vertebral Joints with Interbody Fusion Device, Anterior Approach, Anterior Column, Open Approach (ICD-10-PCS; principal; 2024-11-12 17:39)
DX: M48.02 Spinal stenosis, cervical region (principal); I16.1 Hypertensive emergency; M50.03 Cervical disc disorder with myelopathy, cervicothoracic region; M62.58 Muscle wasting and atrophy, not elsewhere classified, other site; M50.13 Cervical disc disorder with radiculopathy, cervicothoracic region; I10 Essential (primary) hypertension; E66.9 Obesity, unspecified; Z80.8 Family history of malignant neoplasm of other organs or systems; Z79.1 Long term (current) use of non-steroidal anti-inflammatories (NSAID); Z68.30 Body mass index [BMI] 30.0-30.9, adult; Z79.899 Other long term (current) drug therapy
CPT/HCPCS: 36415; 70551; 71046; 72040; 72141; 76000; 80048; 81001; 82085; 82306; 82550; 82607; 82962; 83036; 83516; 84443; 84484; 85025; 85610; 85652; 85730; 86141; 86200; 86225; 86235; 86431; 86850; 86900; 86901; 93005; 93306; 93886; 96374; 97110; 97116; 97163; 97530; G0378; J1100; J1885; J1956; J2003; J2250; J2405; J2704